=== PATIENT | male | born 1990 | race Caucasian/White ===

== ENCOUNTER 2022-07-19 10:28 | Emergency (ER) | payer BC, SELFPAY ==
[2022-07-19 10:28] VITALS: BP 186/94; PULSE 123; RESP 17; TEMP 36.7; O2SAT 97
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
--- NOTE | 2022-07-19 10:29 | PC.NURSE ---
xray at bedside
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
[2022-07-19 10:31] VITALS: BMI 34.2
--- NOTE | 2022-07-19 10:31 | PC.NURSE ---
RADIOLOGY NOTIFIED OF CT SCAN
[2022-07-19 10:45] LABS: Basophils # 0.1 K/mm3 (0-0.2); Basophils % 0.6 % (0.1-2.0); Eosinophils # 0.2 K/mm3 (0.0-0.4); Eosinophils % 1.3 % (0.1-12.0); Hematocrit 51.2 % (42.0-52.0); Hemoglobin 17.3 g/dL (14.1-18.0); Lymphocytes # 3.8 K/mm3 (0.7-4.5); Lymphocytes % 24.7 % (10-50); Mean Corpuscular HGB Conc 33.8 g/dL (31.8-35.4); Mean Corpuscular Hemoglobin 30.5 pg (27.0-31.2); Mean Corpuscular Volume 90.3 fl (80-94); Mean Platelet Volume 7.5 fl (7.4-10.4); Monocytes % 6.9 % (1.7-9.3); Neutrophils # 10.1 K/mm3 (1.8-7.8); Neutrophils % 66.5 % (37.0-80.0); Platelet Count 296 K/mm3 (142-424); Red Blood Count 5.67 M/mm3 (4.60-6.20); Red Cell Distribution Width 12.6 % (11.5-17.5); White Blood Count 15.2 K/mm3 (4.8-10.8)
[2022-07-19 10:46] LABS: Anion Gap 17.7 mEq/L (5-15); Blood Urea Nitrogen 14 mg/dl (9-20); Calcium 9.8 mg/dl (8.4-10.2); Carbon Dioxide 28 mmol/L (22.0-30.0); Chloride 97 mmol/L (98-107); Creatinine Clearance Estimated 180 mL/min (50-200); Estimated Glomerular Filt Rate 88 ml/min (>60); GFR (African American) 106 ML/MIN (>60); Glucose 97 mg/dl (74-100); Potassium 3.7 mmoL/L (3.5-5.1); Sodium 139 mmol/L (136-145)
[2022-07-19 10:53] LABS: MANUAL DIFFERENTIAL MANUAL DIFFERENTIAL (MANUAL DIFF)
[2022-07-19 11:00] VITALS: BP 157/105; PULSE 93; O2SAT 94
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
[2022-07-19 11:07] VITALS: BP 144/100; PULSE 92; O2SAT 95
--- NOTE | 2022-07-19 11:22 | PC.NURSE ---
gave water to pt, visitors at bedside
--- NOTE | 2022-07-19 11:22 | PC.NURSE ---
Rounded on patient at this time no new needs. MD had advised pt could have some water at this time Racquel brought water in. No other needs
[2022-07-19 11:30] VITALS: BP 150/99; PULSE 84; O2SAT 97
--- NOTE | 2022-07-19 11:38 | PC.NURSE ---
checked on pt nothing needed at this time, visitor at bedside
[2022-07-19 11:48] LABS: Eosinophils % 1 % (0-3); Lymphocytes % 24 % (10-50); Monocytes % 6 % (2-9); Neutrophils % 69 % (42-76); Platelet Estimate Normal; RBC Morphology Normal; Total Cells Counted 100
[2022-07-19 11:54] VITALS: BP 150/99; PULSE 82; RESP 16; TEMP 36.8; O2SAT 98
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
== END 2022-07-19 12:14 | disposition home or self-care (01) ==
PROVIDERS: Emergency Provider Emergency Medicine; PCP Nurse Practitioner Family
DX: S21.109A Unspecified open wound of unspecified front wall of thorax without penetration into thoracic cavity, initial encounter (principal); S31.109A Unspecified open wound of abdominal wall, unspecified quadrant without penetration into peritoneal cavity, initial encounter; S01.80XA Unspecified open wound of other part of head, initial encounter; W34.00XA Accidental discharge from unspecified firearms or gun, initial encounter; F17.200 Nicotine dependence, unspecified, uncomplicated; Z23 Encounter for immunization
CPT/HCPCS: 71045; 71260; 80048; 85007; 85025; 90715; 96360; 96372; 99284; 99285; Q9967

== ENCOUNTER 2023-09-07 11:30 | Outpatient (CLI) | payer BC, SELFPAY ==
[2023-09-07 18:13] LABS: Basophils # 0.1 K/mm3 (0-0.2); Basophils % 1.6 % (0.1-2.0); Eosinophils # 0.2 K/mm3 (0.0-0.4); Eosinophils % 2.2 % (0.1-12.0); Hematocrit 51.6 % (42.0-52.0); Hemoglobin 17.3 g/dL (14.1-18.0); Lymphocytes # 2.2 K/mm3 (0.7-4.5); Lymphocytes % 31.2 % (10-50); Mean Corpuscular HGB Conc 33.5 g/dL (31.8-35.4); Mean Corpuscular Hemoglobin 30.3 pg (27.0-31.2); Mean Corpuscular Volume 90.5 fl (80-94); Mean Platelet Volume 7.9 fl (7.4-10.4); Monocytes # 0.4 K/mm3 (0.1-1.0); Monocytes % 5.5 % (1.7-9.3); Neutrophils # 4.2 K/mm3 (1.8-7.8); Neutrophils % 59.4 % (37.0-80.0); Platelet Count 305 K/mm3 (142-424); Red Cell Distribution Width 13.2 % (11.5-17.5)
[2023-09-07 18:41] LABS: Chloride 105 mmol/L (98-107); Sodium 139 mmol/L (136-145)
[2023-09-07 18:42] LABS: Potassium 4.7 mmoL/L (3.5-5.1)
[2023-09-07 18:44] LABS: Alanine Aminotransferase 74 U/L (12-78); Albumin Level 4.8 g/dl (3.5-5.0); Albumin/Globulin Ratio 1.7 (1.1-1.8); Alkaline Phosphatase 101 U/L (38-126); Anion Gap 11.7 mEq/L (5-15); Aspartate Amino Transferase 42 U/L (17-59); Bilirubin,Total 0.5 mg/dl (0.2-1.3); Blood Urea Nitrogen 16 mg/dl (9-20); Carbon Dioxide 27 mmol/L (22.0-30.0); Cholesterol 210 mg/dl (140-200); Estimated Glomerular Filt Rate 87 ml/min (>60); GFR (African American) 105 ML/MIN (>60); Globulin 2.8 g/dL (1.3-3.2); Total Protein,Serum 7.6 g/dl (6.3-8.2); Triglycerides 240 mg/dl (30-150); VLDL Cholesterol 48 mg/dL (0-40)
[2023-09-07 18:45] LABS: Calcium 10.7 mg/dl (8.4-10.2); Chol/HDL Ratio 5.5 (1-3.5); Glucose 84 mg/dl (74-100); HDL Cholesterol 38 mg/dl (40-60)
[2023-09-07 18:56] LABS: Direct LDL Cholesterol 115.93 mg/dL (100-129)
[2023-09-07 19:01] LABS: 25-OH Vitamin D, Total 34.5 ng/mL (30-100)
[2023-09-07 19:05] LABS: Hemoglobin A1C 6.3 % (4.0-6.0)
[2023-09-07 19:16] LABS: Thyroid Stimulating Hormone 2.48 uIU/mL (0.465-4.68)
[2023-09-07 20:51] LABS: Vitamin B12 870 pg/mL (239-931)
[2023-09-08 10:49] LABS: HIV (1&2) Antibody Rapid NON REACTIVE
[2023-09-09 07:08] LABS: Testosterone,Total 283 ng/dL (264-916)
[2023-09-09 12:20] LABS: HCV Ab Non Reactive (Non Reactive)
== END 2023-09-07 23:59 | disposition home or self-care (01) ==
LOC: LAB.DROPOF 09-08 10:48
PROVIDERS: PCP Family Medicine; Visit Provider Family Medicine
DX: R53.83 Other fatigue (principal)
CPT/HCPCS: 80050; 80053; 80061; 82306; 82607; 83036; 84403; 84443; 85025

== ENCOUNTER 2023-11-02 08:50 | Outpatient (CLI) | payer BC, SELFPAY ==
[2023-11-02 19:09] LABS: Alanine Aminotransferase 47 U/L (12-78); Albumin Level 4.1 g/dl (3.5-5.0); Albumin/Globulin Ratio 1.5 (1.1-1.8); Alkaline Phosphatase 86 U/L (38-126); Anion Gap 9.7 mEq/L (5-15); Aspartate Amino Transferase 34 U/L (17-59); Bilirubin,Indirect 0.5 mg/dL (0.0-0.9); Bilirubin,Total 0.5 mg/dl (0.2-1.3); Bilirubin,Unconjugated 0.6 mg/dL (0.0-1.1); Blood Urea Nitrogen 12 mg/dl (9-20); Calcium 9.7 mg/dl (8.4-10.2); Carbon Dioxide 29 mmol/L (22.0-30.0); Chloride 104 mmol/L (98-107); Chol/HDL Ratio 3.3 (1-3.5); Cholesterol 122 mg/dl (140-200); Estimated Glomerular Filt Rate 112 ml/min (>60); GFR (African American) 136 ML/MIN (>60); Globulin 2.7 g/dL (1.3-3.2); Glucose 94 mg/dl (74-100); HDL Cholesterol 37 mg/dl (40-60); Potassium 4.7 mmoL/L (3.5-5.1); Sodium 138 mmol/L (136-145); Total Protein,Serum 6.8 g/dl (6.3-8.2); Triglycerides 101 mg/dl (30-150); VLDL Cholesterol 20 mg/dL (0-40)
[2023-11-02 19:20] LABS: Direct LDL Cholesterol 63.26 mg/dL (100-129)
== END 2023-11-02 23:59 | disposition home or self-care (01) ==
LOC: LAB.DROPOF 11-05 08:50
PROVIDERS: PCP Family Medicine; Visit Provider Family Medicine
DX: R53.83 Other fatigue (principal)
CPT/HCPCS: 80053; 80061; 80076

== ENCOUNTER 2024-07-10 13:34 | Outpatient (CLI) | payer BC, SELFPAY ==
[2024-07-10 18:52] LABS: Basophils % 0.5 % (0.1-2.0); Eosinophils # 0.2 Kmm3 (0.0-0.4); Eosinophils % 3.3 % (0.1-12.0); Hematocrit 48.5 % (42.0-52.0); Hemoglobin 16.6 g/dL (14.1-18.0); Immature Granulocytes # 0.02 10^3uL; Immature Granulocytes % 0.3 %; Lymphocytes # 2.3 K/mm3 (0.7-4.5); Lymphocytes % 35.7 % (10-50); Mean Corpuscular HGB Conc 34.2 g/dL (31.8-35.4); Mean Corpuscular Hemoglobin 30.1 pg (27.0-31.2); Mean Corpuscular Volume 87.9 fl (80-94); Mean Platelet Volume 9.3 fl (7.4-10.4); Monocytes # 0.4 K/mm3 (0.1-1.0); Monocytes % 6.2 % (1.7-9.3); Neutrophils # 3.5 K/mm3 (1.8-7.8); Nucleated Red Blood Cells # 0 10^3/uL; Nucleated Red Blood Cells % 0 %; Platelet Count 299 K/mm3 (142-424); Red Blood Count 5.52 M/mm3 (4.60-6.20); Red Cell Distribution Width 11.9 % (11.5-17.5); Red Cell Distribution Width-SD 38.5 fL; White Blood Count 6.4 K/mm3 (4.8-10.8)
[2024-07-10 19:20] LABS: Alanine Aminotransferase 55 U/L (12-78); Albumin Level 4.7 g/dl (3.5-5.0); Albumin/Globulin Ratio 2.2 (1.1-1.8); Alkaline Phosphatase 100 U/L (38-126); Anion Gap 8.9 mEq/L (5-15); Aspartate Amino Transferase 32 U/L (17-59); Bilirubin,Total 0.6 mg/dl (0.2-1.3); Blood Urea Nitrogen 17 mg/dl (9-20); Carbon Dioxide 28 mmol/L (22.0-30.0); Chloride 105 mmol/L (98-107); Chol/HDL Ratio 4.4 (1-3.5); Cholesterol 168 mg/dl (140-200); Estimated Glomerular Filt Rate 98 ml/min (>60); GFR (African American) 118 ML/MIN (>60); Globulin 2.1 g/dL (1.3-3.2); Glucose 98 mg/dl (74-100); HDL Cholesterol 38 mg/dl (40-60); Potassium 4.9 mmoL/L (3.5-5.1); Sodium 137 mmol/L (136-145); Total Protein,Serum 6.8 g/dl (6.3-8.2); Triglycerides 157 mg/dl (30-150); VLDL Cholesterol 31 mg/dL (0-40)
[2024-07-10 19:35] LABS: Direct LDL Cholesterol 100.26 mg/dL (100-129)
[2024-07-10 19:48] LABS: Thyroid Stimulating Hormone 1.62 uIU/mL (0.465-4.68)
[2024-07-10 22:32] LABS: Hemoglobin A1C 5.1 % (4.0-6.0)
== END 2024-07-10 23:59 | disposition home or self-care (01) ==
LOC: LAB.DROPOF 07-11 13:14
PROVIDERS: PCP Family Medicine; Visit Provider Family Medicine
DX: E78.5 Hyperlipidemia, unspecified (principal); R73.03 Prediabetes; R53.83 Other fatigue; Z00.00 Encounter for general adult medical examination without abnormal findings
CPT/HCPCS: 80053; 80061; 82306; 83036; 84403; 84443; 85025

== ENCOUNTER 2024-08-04 23:57 | Emergency (ER) | payer BC, SELFPAY ==
--- NOTE | 2024-08-05 00:06 | ECG_ITS ---
APPROVED REPORT Exam: Resting ECG HR:80 bpm ECG Measurements Heart Rate 80 AXES SD 149 P 64 QRSd 99 QRS 59 QT 352 T 49 QTc 388 Conclusion SINUS RHYTHM NORMAL ECG Electronically signed by : HERBER LYONS, 08/05/2024 06:31:39
[2024-08-05 00:08] VITALS: BP 157/106; PULSE 61; RESP 12; TEMP 36.9; O2SAT 100; BMI 34.2
--- NOTE | 2024-08-05 00:24 | XR_ITS ---
PROCEDURE INFORMATION: Exam: XR Chest Exam date and time: 08/05/2024 12:30 AM Age: 34 years old Clinical indication: Pain; Angina pectoris; Additional info: Low chest pain/burning TECHNIQUE: Imaging protocol: Radiologic exam of the chest. Views: 2 views. COMPARISON: CT CHEST W CON 07/19/2022 10:33 AM FINDINGS: Lungs: Unremarkable. No consolidation. Pleural spaces: Unremarkable. No pleural effusion. No pneumothorax. Heart/Mediastinum: Unremarkable. No cardiomegaly. Bones/joints: Unremarkable. IMPRESSION: No acute findings.
[2024-08-05 00:31] LABS: Basophils # 0.1 K/mm3 (0-0.2); Basophils % 0.6 % (0.1-2.0); Eosinophils # 0.2 Kmm3 (0.0-0.4); Eosinophils % 2.1 % (0.1-12.0); Hematocrit 45.7 % (42.0-52.0); Immature Granulocytes # 0.03 10^3uL; Immature Granulocytes % 0.3 %; Lymphocytes # 2.7 K/mm3 (0.7-4.5); Lymphocytes % 30.1 % (10-50); Mean Corpuscular Hemoglobin 30.1 pg (27.0-31.2); Mean Corpuscular Volume 86.1 fl (80-94); Mean Platelet Volume 8.9 fl (7.4-10.4); Monocytes # 0.5 K/mm3 (0.1-1.0); Monocytes % 5.5 % (1.7-9.3); Neutrophils # 5.6 K/mm3 (1.8-7.8); Neutrophils % 61.4 % (37.0-80.0); Nucleated Red Blood Cells # 0 10^3/uL; Nucleated Red Blood Cells % 0 %; Platelet Count 311 K/mm3 (142-424); Red Blood Count 5.31 M/mm3 (4.60-6.20); Red Cell Distribution Width 11.9 % (11.5-17.5); Red Cell Distribution Width-SD 37.1 fL; White Blood Count 9.1 K/mm3 (4.8-10.8)
[2024-08-05 00:34] LABS: Alanine Aminotransferase 60 U/L (12-78); Albumin Level 4.7 g/dl (3.5-5.0); Albumin/Globulin Ratio 1.7 (1.1-1.8); Alkaline Phosphatase 97 U/L (38-126); Aspartate Amino Transferase 36 U/L (17-59); Bilirubin,Total 0.4 mg/dl (0.2-1.3); Blood Urea Nitrogen 16 mg/dl (9-20); Carbon Dioxide 29 mmol/L (22.0-30.0); Creatinine Clearance Estimated 175 mL/min (50-200); Estimated Glomerular Filt Rate 86 ml/min (>60); GFR (African American) 104 ML/MIN (>60); Globulin 2.7 g/dL (1.3-3.2); Glucose 115 mg/dl (74-100); Potassium 3.9 mmoL/L (3.5-5.1); Sodium 140 mmol/L (136-145); Total Protein,Serum 7.4 g/dl (6.3-8.2)
[2024-08-05] MEDS: BELLADONNA ALKALOIDS 60 ML ML PO (00:36)
[2024-08-05] MEDS: ASPIRIN 81MG CHEWABLE TABLET 324 MG PO (00:36)
[2024-08-05 00:38] LABS: INR 1.02 (0.9-1.1); Prothrombin Time 11.3 seconds (10.1-12.5)
[2024-08-05 00:47] LABS: Anion Gap 10.9 mEq/L (5-15); Chloride 104 mmol/L (98-107); Troponin I < 0.01 ng/ml (0.00-0.034)
[2024-08-05 01:09] LABS: Lipase 39 U/L (23-300)
[2024-08-05] MEDS: KETOROLAC 30MG/ML VIAL 15 MG IV (01:11)
[2024-08-05] MEDS: ONDANSETRON 4MG/2ML VIAL 4 MG IV (01:12)
--- NOTE | 2024-08-05 01:22 | PC.NURSE ---
After patient reassessment, pt found to be vomiting into emesis bag upon entry to room. Patient medicated at that time. SEE MAR. Patient states that epigastric pain has subsided after emesis episode, and refuses nitro at this time due to decreased pain.
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
[2024-08-05 03:51] LABS: Troponin I < 0.01 ng/ml (0.00-0.034)
[2024-08-05 04:04] VITALS: BP 128/73; PULSE 66; RESP 16; TEMP 36.7; O2SAT 99
== END 2024-08-05 04:07 | disposition home or self-care (01) ==
PROVIDERS: Emergency Provider Emergency Medicine
DX: R07.9 Chest pain, unspecified (principal); R10.13 Epigastric pain; F17.290 Nicotine dependence, other tobacco product, uncomplicated
CPT/HCPCS: 71046; 80053; 83690; 84484; 85025; 85610; 93005; 96374; 96375; 99284; J1885; J2405

== ENCOUNTER 2025-01-25 03:31 | Emergency (ER) | payer BC, SELFPAY ==
--- OUTSIDE RECORDS SUMMARY | 2025-01-23 14:01 | XMS_ITS | Encounter Summary ---
Author Organization [employer] ([place], [place], [place], [place], [place]) Address [address] [place] [address] Care Team Providers Care Noc Analyst Name Role Phone [facility], Provider Not In The System Primary Care Provider Unavailable Reason for Visit * Reason Comments Abdominal Pain Encounter Details Date Type Department Care Team (Late st Contact Info) Description 01/23/2025 2:01 PM EST - 01/23/2025 5:38 PM EST Emergency [facility] Emergency Department [address] [place] [id number] Abdominal pain (Primary Dx); Gallstone Discharge Disposition: Home or Self Care Social History Tobacco Use Types Packs/Day Years Used Date Smoking Tobacco: Never Assessed Sex and Gender Information Value Date Recorded Sex Assigned at Not on file Legal Sex Male 8:24 PM CDT Gender Identity Not on file Sexual Orientation Not on file documented as of this encounter Last Filed Vital Signs Vital Sign Reading Time Taken Comments Blood Pressure 162/99 01/23/2025 5:37 PM EST Pulse 80 01/23/2025 5:37 PM EST Temperature 36.6 C (97.9 F) 01/23/2025 2:00 PM EST Respiratory Rate 18 01/23/2025 5:37 PM EST Oxygen Saturation 99% 01/23/2025 5:37 PM EST Inhaled Oxygen Concentration - - Weight 106.6 kg (235 lb) 01/23/2025 2:00 PM EST Height 185.4 cm (6' 1 ) 01/23/2025 2:00 PM EST Body Mass Index 31 01/23/2025 2:00 PM EST documented in this encounter Discharge Instructions * Discharge Instructions* Emilia Archuleta PA-C - 01/23/2025 4:47 PM EST Recommend bland diet. Follow up with Primary Care and Surgery next week for evaluation of gallstones. Return to ER if symptoms worse or different. IGURATION ENGINEER IGURATION ENGINEER * Attachments The following attachments cannot be sent through Care Everywhere. * Cholelithiasis [place] (Tanzanian) * Abdominal Pain Adult (Tanzanian) * [place] Diet (Tanzanian) documented in this encounter Medications at Time of Discharge famotidine (PEPCID) 40 MG tablet Take 1 tablet (40 mg total) by mouth daily. 30 tablet 01/23/2025 ondansetron (ZOFRAN-ODT) 4 MG disintegrating tablet Take 1 tablet (4 mg total) by mouth every 4 (four) hours as needed for nausea or vomiting for up to 7 days. 20 tablet 01/23/2025 5 documented as of this encounter ED Notes * Stella Chirinos RN - 01/23/2025 5:37 PM EST Pt. Verbalized discharge instructions and understanding. Pt. At baseline and ambulatory at time of discharge. Stella Chirinos RN 01/23/25 [id number] IGURATION ENGINEER * Sukh Hobbs RN - 01/23/2025 1:59 PM EST Burning belly pain. IGURATION ENGINEER documented in this encounter Plan of Treatment Not on file documented as of this encounter Procedures Procedure Name Priority Date/Time Associated Diagnosis Comments CT ABDOMEN/PELVIS WITH IV CONTRAST STAT 01/23/2025 3:26 PM EST URINALYSIS, REFLEX MICROSCOPIC AND CULTURE IF INDICATED STAT 01/23/2025 2:55 PM EST [place] PST (EXTRA TUBES) STAT 01/23/2025 2:07 PM EST [place] LUTHER TOP STAT 01/23/2025 2:07 PM EST [place] BLUE TOP (EXTRA TUBES) STAT 01/23/2025 2:07 PM EST [place] EXTRA TUBES STAT 01/23/2025 2:07 PM EST CBC W/ AUTO DIFF STAT 01/23/2025 2:07 PM EST LIPASE STAT 01/23/2025 2:07 PM EST COMPREHENSIVE METABOLIC PANEL STAT 01/23/2025 2:07 PM EST documented in this encounter Results * CT ABDOMEN/PELVIS WITH IV CONTRAST (01/23/2025 3:26 PM EST) Anatomical Region Laterality Modality Abdomen, Pelvis Computed Tomogra phy (CT) 01/23/2025 4:02 PM EST Impressions 01/23/2025 4:14 PM EST No acute intra-abdominal process. Cholelithiasis. Images reviewed, interpreted, and dictated by Dr. Angelique Khan. Transcribed by Micki Goldberg PA-C. Narrative 01/23/2025 4:[address] SCAN OF THE ABDOMEN AND PELVIS WITH CONTRAST 01/23/2025 3:06 PM HISTORY: Epigastric pain. COMPARISON: None. PROCEDURE: The patient was injected with IV contrast. Axial images were obtained from the lung bases to the pubic symphysis by computed tomography. This study was performed with techniques to keep radiation doses as low as reasonably achievable, (ALARA). Individualized dose reduction techniques using automated exposure control or adjustment of mA and/or kV according to the patient size were employed. FINDINGS: ABDOMEN: The lung bases are clear. The heart is proper size. The liver is homogenous with no focal abnormality. There are gallstones within the gallbladder. The spleen is unremarkable. No adrenal mass is present. The pancreas is unremarkable. The kidneys are unremarkable, without evidence of mass or hydronephrosis. The aorta is normal in caliber. There is no free fluid or adenopathy. PELVIS: The GI tract demonstrates no obstruction. The appendix is not identified. The urinary bladder is unremarkable. There is no free fluid, adenopathy, or inflammatory process. Procedure Note Fan Khan MD - 01/23/2025 CT SCAN OF THE ABDOMEN AND PELVIS WITH CONTRAST 01/23/2025 3:06 PM HISTORY: Epigastric pain. COMPARISON: None. PROCEDURE: The patient was injected with IV contrast. Axial images were obtained from the lung bases to the pubic symphysis by computed tomography. This study was performed with techniques to keep radiation doses as low as reasonably achievable, (ALARA). Individualized dose reduction techniques using automated exposure control or adjustment of mA and/or kV according to the patient size were employed. FINDINGS: ABDOMEN: The lung bases are clear. The heart is proper size. The liver is homogenous with no focal abnormality. There are gallstones within the gallbladder. The spleen is unremarkable. No adrenal mass is present. The pancreas is unremarkable. The kidneys are unremarkable, without evidence of mass or hydronephrosis. The aorta is normal in caliber. There is no free fluid or adenopathy. PELVIS: The GI tract demonstrates no obstruction. The appendix is not identified. The urinary bladder is unremarkable. There is no free fluid, adenopathy, or inflammatory process. IMPRESSION: No acute intra-abdominal process. Cholelithiasis. Images reviewed, interpreted, and dictated by Dr. Angelique Khan. Transcribed by Micki Goldberg PA-C. Emilia Archuleta PA-C IM CT ORDERABLES Final Res ult * Urinalysis, Reflex Microscopic and Culture If Indicated (01/23/2025 2:55 PM EST) Color, UA Colorless 01/23/2025 3:00 PM EST [facility] Clarity, UA Clear Clear 01/23/2025 3:00 PM EST [facility] Specific [place], UA 1.010 1.005 - 1.030 01/23/2025 3:00 PM EST [facility] pH, UA 7.5 6.0 - 8.0 01/23/2025 3:00 PM [facility] Leukocytes, UA Negative Negative 01/23/2025 3:00 PM [facility] Nitrite, UA Negative Negative 01/23/2025 3:00 PM [facility] Protein, UA Negative Negative 01/23/2025 3:00 PM [facility] Glucose, UA Normal Normal 01/23/2025 3:00 PM [facility] Ketones, UA Negative Negative 01/23/2025 3:00 PM [facility] Bilirubin, UA Negative Negative 01/23/2025 3:00 PM [facility] Blood, UA Negative Negative 01/23/2025 3:00 PM [facility] Urobilinogen, UA Normal Normal 01/23/2025 3:00 PM [facility] Specimen Source Urine, Clean Catch 01/23/2025 3:00 PM [facility] Urine URINE SPECIMEN COLLECTION, CLEAN CATCH / Unknown 01/23/2025 2:55 PM EST 01/23/2025 2:55 PM EST Kj Hernandez MD URINE ORDERABLES Final Resu lt Performing Organization Address City/[facility]/ZIP Co de Phone Number [facility] [address] [phone] * Luther Top Extra Tubes (01/23/2025 2:07 PM EST) HOLD SPECIMEN (SJ - BKR) Hold for add-ons. 01/23/2025 4:00 PM EST [facility] Comment:Auto resulted. Blood (Blood, Veinous) Venipuncture / Unknown 01/23/2025 2:07 PM EST 01/23/2025 2:16 PM EST Kj Hernandez MD LAB BLOOD ORDERABLES Final Result Performing Organization Address City/[facility]/ZIP Co de Phone Number [facility] [address] [phone] * PST Top Extra Tubes (01/23/2025 2:07 PM EST) HOLD SPECIMEN ( - BKR) Hold for add-ons. 01/23/2025 4:00 PM EST [facility] Comment:Auto resulted. Blood (Blood, Veinous) Venipuncture / Unknown 01/23/2025 2:07 PM EST 01/23/2025 2:16 PM EST Kj Hernandez MD LAB BLOOD ORDERABLES Final Result Performing Organization Address City/[facility]/ZIP Co de Phone Number [facility] [address] [phone] * Blue Top Extra Tubes (01/23/2025 2:07 PM EST) HOLD SPECIMEN ( - BKR) Hold for add-ons. 01/23/2025 4:00 PM EST [facility] Comment:Auto resulted. Blood (Blood, Veinous) Venipuncture / Unknown 01/23/2025 2:07 PM EST 01/23/2025 2:16 PM EST Kj Hernandez MD LAB BLOOD ORDERABLES Final Result Performing Organization Address [facility] Co de Phone Number [facility] [address] [phone] * Lipase (01/23/2025 2:07 PM EST) Lipase 14 <=60 U/L 01/23/2025 2:40 PM EST [facility] Blood Venipuncture / Unknown 01/23/2025 2:07 PM EST 01/23/2025 2:16 PM EST Kj Hernandez MD LAB BLOOD ORDERABLES Final Result Performing Organization Address [facility] Co de Phone Number [facility] [address] [phone] * (ABNORMAL) Comprehensive metabolic panel (01/23/2025 2:07 PM EST) Sodium 140 136 - 145 meq/L 01/23/2025 2:40 PM [facility] Potassium 4.6 3.4 - 5.1 meq/L 01/23/2025 2:40 PM [facility] Chloride 107 98 - 112 meq/L 01/23/2025 2:40 PM [facility] CO2 25 22 - 29 meq/L 01/23/2025 2:40 PM [facility] Calcium 10.2 8.4 - 10.2 mg/dL 01/23/2025 2:40 PM [facility] Glucose 104(H) 74 - 100 mg/dL 01/23/2025 2:40 PM [facility] BUN 18.0 8.9 - 20.6 mg/dL 01/23/2025 2:40 PM [facility] Creatinine 0.94 0.60 - 1.20 mg/dL 01/23/2025 2:40 PM [facility] BUN/Creatinine 19 8 - 20 01/23/2025 2:40 PM [facility] eGFR (mL/min/1.73m2) 110 >=60 mL/min/1.7 3m2 01/23/2025 2:40 PM [facility] Comment:ESTIMATED GFR IS NOT ACCURATE CREATININE CLEARANCE IN PREDICTING GLOMERULAR FILTRATION RATE. ESTIMATED GFR IS NOT APPLICABLE FOR DIALYSIS PATIENTS. Albumin 4.5 3.5 - 5.0 g/dL 01/23/2025 2:40 PM [facility] Alkaline Phosphatase 96 40 - 150 U/L 01/23/2025 2:40 PM [facility] ALT 50 <55 U/L 01/23/2025 2:40 PM [facility] AST 28 5 - 34 U/L 01/23/2025 2:40 PM [facility] Total Bilirubin 0.4 0.3 - 1.2 mg/dL 01/23/2025 2:40 PM [facility] Protein, Total 7.4 6.4 - 8.3 g/dL 01/23/2025 2:40 PM [facility] Globulin 2.9 2.5 - 4.1 g/dL 01/23/2025 2:40 PM [facility] Anion Gap 13(H) 4 - 12 01/23/2025 2:40 PM [facility] A/G Ratio 1.6 0.7 - 1.9 01/23/2025 2:40 PM [facility] Osmolality Calc 281.6 mOsm/kg 2:40 PM [facility] Blood Venipuncture / Unknown 01/23/2025 2:07 PM EST 01/23/2025 2:16 PM EST us Kj Hernandez MD LAB BLOOD ORDERABLES Final Result [facility] [address] [phone] * (ABNORMAL) CBC with Auto Diff (01/23/2025 2:07 PM EST) WBC 8.8 4.2 - 9.1 K/ L 01/23/2025 2:20 PM [facility] RBC 5.49 4.63 - 6.08 M/ L 01/23/2025 2:20 PM [facility] Hemoglobin 16.5 13.7 - 17.5 GM/DL 01/23/2025 2:20 PM [facility] Hematocrit 47.6 40.1 - 51.0 % 01/23/2025 2:20 PM [facility] MCV 87 79 - 92 fL 01/23/2025 2:20 PM [facility] MCH 30.1 25.7 - 32.2 pg 01/23/2025 2:20 PM [facility] MCHC 34.7 32.3 - 36.5 GM/DL 01/23/2025 2:20 PM [facility] RDW 11.9 11.6 - 14.4 % 01/23/2025 2:20 PM [facility] Platelets 296 140 - 375 K/CU MM 01/23/2025 2:20 PM [facility] MPV 8.8(L) 9.4 - 12.4 fL 01/23/2025 2:20 PM [facility] % Neutros 64 34 - 68 % 01/23/2025 2:20 PM [facility] % Lymphs 29 22 - 53 % 01/23/2025 2:20 PM [facility] % Monos 5 5 - 12 % 01/23/2025 2:20 PM [facility] % Eos 1.3 1.0 - 7.0 % 01/23/2025 2:20 PM [facility] % Baso 1 0 - 1 % 01/23/2025 2:20 PM [facility] NRBC Absolute <0.01 0 - 0.012 K/ul 01/23/2025 2:20 PM [facility] # Neutros 5.59(H) 1.78 - 5.38 K/ L 01/23/2025 2:20 PM [facility] # Lymphs 2.54 1.32 - 3.57 K/ L 01/23/2025 2:20 PM [facility] # Monos 0.47 0.30 - 0.82 K/ L 01/23/2025 2:20 PM [facility] # Eos 0.11 0.04 - 0.54 K/ L 01/23/2025 2:20 PM [facility] # Baso 0.06 0.01 - 0.08 K/ L 01/23/2025 2:20 PM [facility] % Imm Grans 0.30 0.01 - 0.43 % 01/23/2025 2:20 PM [facility] # IG 0.03 0.00 - 0.03 K/uL 01/23/2025 2:20 PM [facility] Blood Venipuncture / Unknown 01/23/2025 2:07 PM EST 01/23/2025 2:16 PM [facility] - 01/23/2025 2:20 PM EST When CBC w/ Auto Diff is ordered the lab will add a Manual Differential as a quality check at no additional charge if: Lymphocytes greater than seventy five percent with normal or increased WBC Monocytes greater than Fifteen percent Basophil greater than four percent Bands >10% or several immature myeloids are seen on scan Blast? Flag noted Atypical Lymph flag noted us Kj Hernandez MD LAB BLOOD ORDERABLES Final Result [facility] [address] [place] [address], [facility] [phone] documented in this encounter Visit Diagnoses Diagnosis Abdominal pain- Primary Abdominal pain, unspecified site Gallstone Calculus of gallbladder without mention of cholecystitis or obstruction documented in this encounter Administered Medications Inactive Administered Medications - up to 3 most recent administrations Medication Order MAR Action Action Date Dose Rate Site iopamidoL (ISOVUE-370) 370 mg iodine /mL (76 %) injection 75 mL 75 mL IMG once as needed, intravenous, contrast, Starting on Sun01/23/25 at 1515, For 1 dose, Intra-op Given 01/23/2025 3:27 PM EST 75 mLs documented in this encounter Active and Recently Administered Medications Times are shown in EST. Scheduled Medication Order 01/21/2025 01/22/2025 01/23/2025 alum-mag hydroxide-simeth (MAALOX/MYLANTA) 200-200-20 mg/5 mL suspension 30 mL 30 mL Once, oral, On Sun01/23/25 at 1620, For 1 dose, Do NOT exceed 6 doses per order. 1630 (Not Given - Pr ovider: Stella Chirinos RN - Reason: Patient/family refused) famotidine (PEPCID) tablet 40 mg 40 mg Once, oral, On Sun01/23/25 at 1620, For 1 dose, Pharmacist to renally dose if CrCl is less than 50 mL/min or on CRRT. 1631 (Not Given - Pr ovider: Stella Chirinos RN - Reason: Patient/family refused) PRN Medication Order 01/21/2025 01/22/2025 01/23/2025 iopamidoL (ISOVUE-370) 370 mg iodine /mL (76 %) injection 75 mL (COMPLETED) 75 mL IMG once as needed, intravenous, contrast, Starting on Sun01/23/25 at 1515, For 1 dose, Intra-op 1527 (Given - Provid er: Carmen Desai) documented in this encounter Care Teams Noc Analyst Relationship Specialty Start Date End Date [facility], Provider Not In The System, [place] [address] PCP - General 01/23/25 documented as of this encounter
--- OUTSIDE RECORDS SUMMARY | 2025-01-25 03:37 | XMS_ITS | Clinical Summary ---
Author Organization [facility] ([place], [place], [place], [place], [place]) Address [address] [place] [address] Care Team Providers Care Dough Raiser Name Role Phone [facility], Provider Not In The System Primary Care Provider Unavailable Allergies No known active allergies Medications famotidine (PEPCID) 40 MG tablet Take 1 tablet (40 mg total) by mouth daily. 30 tablet Active ondansetron (ZOFRAN-ODT) 4 MG disintegrating tablet Take 1 tablet (4 mg total) by mouth every 4 (four) hours as needed for nausea or vomiting for up to 7 days. 20 tablet 5 01/31/20 25 Active Encounters Date Type Department Care Team Description 01/23/2025 2:01 PM EST - 01/23/2025 5:38 PM EST Emergency [facility] Emergency Department [address] [place] [address] Abdominal pain (Primary Dx); Gallstone Discharge Disposition: Home or Self Care 01/23/2025 Travel from Last 3 Months Social History Tobacco Use Types Packs/Day Years Used Date Smoking Tobacco: Never Assessed Sex and Gender Information Value Date Recorded Sex Assigned at Not on file Legal Sex Male 8:24 PM CDT Gender Identity Not on file Sexual Orientation Not on file Last Filed Vital Signs Vital Sign Reading [...] Mass Index 31 01/23/2025 2:00 PM EST Plan of Treatment Health Maintenance Due Date Last Done Comments Depression Screening (12+) 2003 Tobacco Cessation Counseling and Screening (12+) 2003 COVID-19 VACCINE ( - 2023-2 5 season) 2024 Influenza Vaccine (#1) 2024 DTAP/TDAP/TD VACCINES (3 - T d or Tdap) 07/19/2032 07/19/2022, 06/12/1996 Pneumococcal Vaccine: 0-49 Years Aged Out No longer eligible b ased on patient's age to complete this topic Procedures Procedure Name Priority Date/Time Associated Diagnosis Comments CT ABDOMEN/PELVIS WITH IV CONTRAST STAT 01/23/2025 3:26 PM EST URINALYSIS, REFLEX MICROSCOPIC AND CULTURE IF INDICATED STAT 01/23/2025 2:55 PM EST [place] LUTHER TOP STAT 01/23/2025 2:07 PM EST [place] PST (EXTRA TUBES) STAT 01/23/2025 2:07 PM EST [place] BLUE TOP (EXTRA TUBES) STAT 01/23/2025 2:07 PM EST [place] EXTRA TUBES STAT 01/23/2025 2:07 PM EST LIPASE STAT 01/23/2025 2:07 PM EST COMPREHENSIVE METABOLIC PANEL STAT 01/23/2025 2:07 PM EST CBC W/ AUTO DIFF STAT 01/23/2025 2:07 PM EST from Last 3 Months Results * CT ABDOMEN/PELVIS WITH IV CONTRAST [...] by Micki Goldberg PA-C. Emilia Archuleta PA-C IMG CT ORDERABLES Final Res ult * Urinalysis, Reflex Microscopic and Culture If Indicated (01/23/2025 2:55 PM EST) Color, UA Colorless 01/23/2025 3:00 PM [facility] Clarity, UA Clear Clear 01/23/2025 3:00 PM [facility] Specific [place], UA 1.010 1.005 - 1.030 01/23/2025 3:00 PM [facility] pH, UA 7.5 6.0 - 8.0 01/23/2025 3:00 PM [facility] Leukocytes, UA Negative Negative 01/23/2025 3:00 PM [facility] Nitrite, UA Negative Negative 01/23/2025 3:00 PM [facility] Protein, UA Negative Negative 01/23/2025 3:00 PM [facility] Glucose, UA Normal Normal 01/23/2025 3:00 PM [facility] Ketones, UA Negative Negative 01/23/2025 3:00 PM [facility] Bilirubin, UA Negative Negative 01/23/2025 3:00 PM [facility] Blood, UA Negative Negative 01/23/2025 3:00 PM [facility] Urobilinogen, UA Normal Normal 01/23/2025 3:00 PM [facility] Specimen Source Urine, Clean Catch 01/23/2025 3:00 PM [facility] Urine URINE SPECIMEN COLLECTION, CLEAN CATCH / Unknown 01/23/2025 2:55 PM EST 01/23/2025 2:55 PM EST Kj Hernandez MD URINE ORDERABLES Final Resu lt Performing Organization Address [facility]/ZIP Co de Phone Number [facility] [address] [place] [address], [facility] [phone] * PST Top Extra Tubes (01/23/2025 2:07 PM EST) HOLD SPECIMEN (SJ - BKR) Hold for add-ons. 01/23/2025 4:[address] [facility] Comment:Auto resulted. Blood (Blood, Veinous) Venipuncture / Unknown 01/23/2025 2:07 PM EST 01/23/2025 2:16 PM EST Kj Hernandez MD LAB BLOOD ORDERABLES Final Result Performing Organization Address [facility] Co de Phone Number [facility] [address] [phone] * Luther Top Extra Tubes (01/23/2025 2:07 PM EST) HOLD SPECIMEN (SJ - BKR) Hold for add-ons. 01/23/2025 4:[address] [facility] Comment:Auto resulted. Blood (Blood, Veinous) Venipuncture / Unknown 01/23/2025 2:07 PM EST 01/23/2025 2:16 PM EST Kj Hernandez MD LAB BLOOD ORDERABLES Final Result Performing Organization Address [facility] Co de Phone Number [facility] [address] [place] [address], [facility] [phone] * Blue Top Extra Tubes (01/23/2025 2:07 PM EST) HOLD SPECIMEN (SJ - BKR) Hold for add-ons. 01/23/2025 4:[address] [facility] Comment:Auto resulted. Blood (Blood, Veinous) Venipuncture / Unknown 01/23/2025 2:07 PM EST 01/23/2025 2:16 PM EST us Kj Hernandez MD LAB BLOOD ORDERABLES Final Result [facility] [address] [phone] * (ABNORMAL) CBC with Auto Diff (01/23/2025 2:07 PM EST) WBC 8.8 4.2 - 9.1 K/ L 01/23/2025 2:20 PM [facility] RBC 5.49 4.63 - 6.08 M/ L 01/23/2025 2:20 PM [facility] Hemoglobin 16.5 13.7 - 17.5 GM/DL 01/23/2025 2:20 PM [facility] Hematocrit 47.6 40.1 - 51.0 % 01/23/2025 2:20 PM [facility] MCV 87 79 - 92 fL 01/23/2025 2:20 PM [facility] MCH 30.1 25.7 - 32.2 pg 01/23/2025 2:20 PM [facility] MCHC 34.7 32.3 - 36.5 GM/DL 01/23/2025 2:20 PM [facility] RDW 11.9 11.6 - 14.4 % 01/23/2025 2:20 PM [facility] Platelets 296 140 - 375 K/CU MM 01/23/2025 2:20 PM [facility] MPV 8.8(L) 9.4 - 12.4 fL 01/23/2025 2:20 PM [facility] % Neutros 64 34 - 68 % 01/23/2025 2:20 PM [facility] % Lymphs 29 22 - 53 % 01/23/2025 2:20 PM [facility] % Monos 5 5 - 12 % 01/23/2025 2:20 PM [facility] % Eos 1.3 1.0 - 7.0 % 01/23/2025 2:20 PM [facility] % Baso 1 0 - 1 % 01/23/2025 2:20 PM [facility] NRBC Absolute <0.01 0 - 0.012 K/ul 01/23/2025 2:20 PM [facility] # Neutros 5.59(H) 1.78 - 5.38 K/ L 01/23/2025 2:20 PM [facility] # Lymphs 2.54 1.32 - 3.57 K/ L 01/23/2025 2:20 PM [facility] # Monos 0.47 0.30 - 0.82 K/ L 01/23/2025 2:20 PM [facility] # Eos 0.11 0.04 - 0.54 K/ L 01/23/2025 2:20 PM [facility] # Baso 0.06 0.01 - 0.08 K/ L 01/23/2025 2:20 PM [facility] % Imm Grans 0.30 0.01 - 0.43 % 01/23/2025 2:20 PM [facility] # IG 0.03 0.00 - 0.03 K/uL 01/23/2025 2:20 PM [facility] Blood Venipuncture / Unknown 01/23/2025 2:07 PM EST 01/23/2025 2:[address] [facility] - 01/23/2025 2:20 PM EST When [...] Hernandez MD LAB BLOOD ORDERABLES Final Result [facility] [address] [phone] * Lipase (01/23/2025 2:07 PM EST) Lipase 14 <=60 U/L 01/23/2025 2:40 PM [facility] Blood Venipuncture / Unknown 01/23/2025 2:07 PM EST 01/23/2025 2:16 PM EST us Kj Hernandez MD LAB BLOOD ORDERABLES Final Result [facility] [address] [phone] * (ABNORMAL) Comprehensive metabolic panel (01/23/2025 2:07 PM EST) Sodium 140 136 - 145 meq/L 01/23/2025 2:40 PM [facility] Potassium 4.6 3.4 - 5.1 meq/L 01/23/2025 2:40 PM [facility] Chloride 107 98 - 112 meq/L 01/23/2025 2:40 PM [facility] CO2 25 22 - 29 meq/L 01/23/2025 2:40 PM [facility] Calcium 10.2 8.4 - 10.2 mg/dL 01/23/2025 2:40 PM [facility] Glucose 104(H) 74 - 100 mg/dL 01/23/2025 2:40 PM [facility] BUN 18.0 8.9 - 20.6 mg/dL 01/23/2025 2:40 PM [facility] Creatinine 0.94 0.60 - 1.20 mg/dL 01/23/2025 2:40 PM [facility] BUN/Creatinine 19 8 - 20 01/23/2025 2:40 PM [facility] eGFR (mL/min/1.73m2) 110 >=60 mL/min/1.7 3m2 01/23/2025 2:40 PM [facility] Comment:ESTIMATED GFR IS NOT ACCURATE CREATININE CLEARANCE IN PREDICTING GLOMERULAR FILTRATION RATE. ESTIMATED GFR IS NOT APPLICABLE FOR DIALYSIS PATIENTS. Albumin 4.5 3.5 - 5.0 g/dL 01/23/2025 2:40 PM [facility] Alkaline Phosphatase 96 40 - 150 U/L 01/23/2025 2:40 PM [facility] ALT 50 <55 U/L 01/23/2025 2:40 PM [facility] AST 28 5 - 34 U/L 01/23/2025 2:40 PM [facility] Total Bilirubin 0.4 0.3 - 1.2 mg/dL 01/23/2025 2:[address] [facility] Protein, Total 7.4 6.4 - 8.3 g/dL 01/23/2025 2:40 PM [facility] Globulin 2.9 2.5 - 4.1 g/dL 01/23/2025 2:40 PM [facility] Anion Gap 13(H) 4 - 12 01/23/2025 2:40 PM [facility] A/G Ratio 1.6 0.7 - 1.9 01/23/2025 2:40 PM [facility] Osmolality Calc 281.6 mOsm/kg 2:40 PM [facility] Blood Venipuncture / Unknown 01/23/2025 2:07 PM EST 01/23/2025 2:16 PM EST us Kj Hernandez MD LAB BLOOD ORDERABLES Final Result Performing Organization Address [facility]/State/[facility] Co de Phone Number [facility] [address] [phone] from Last 3 Months Insurance BLUE CROSS/BLUE SHIELD Care Teams Dough Raiser Relationship Specialty Start Date End Date [facility], Provider Not In The System, [place] [address] PCP - General 01/23/25
--- OUTSIDE RECORDS SUMMARY | 2025-01-25 03:37 | XMS_ITS | Encounter Summary ---
Author Organization [email or web address] ([place], [place], [place], [place], [place]) Address [address] [place] [address] Care Team Providers Care Real Estate Branch Manager Name Role Phone [facility], Provider Not In The System Primary Care Provider Unavailable Encounter Details Date Type Department Care Team (Latest Contact Info) Description 01/23/2025 Travel Social History Tobacco Use Types Packs/Day Years Used Date Smoking Tobacco: Never Assessed Sex and Gender Information Value Date Recorded Sex Assigned at Not on file Legal Sex Male 8:24 PM CDT Gender Identity Not on file Sexual Orientation Not on file documented as of this encounter Plan of Treatment Not on file documented as of this encounter Visit Diagnoses Not on filedocumented in this encounter Care Teams Real Estate Branch Manager Relationship Specialty Start Date End Date Inderjit Provider Not In The System, [place] [address] PCP - General 01/23/25 documented as of this encounter
--- OUTSIDE RECORDS SUMMARY | 2025-01-25 03:37 | XMS_ITS | Clinical Summary ---
Author Organization [facility] Address [address] [place] [id number] Phone [email or web address] Care Team Providers Care Appeals Representative Name Role Phone Provider, No Primary Care Provider Unavailabl e Allergies Active Allergy Reactions Criticality Noted Date Comments Onion Anaphylaxis High 11/20/2017 Medications atorvastatin (LIPITOR) 10 MG tablet Take 10 mg by mouth 1 (one) time each day. Active Active Problems No known active problems Social History Tobacco Use Types Packs/Day Years Used Date Smoking Tobacco: Former Cigarettes 2 5 S tarted: 2020 Smokeless Tobacco: Never Intimate Partner Violence Answer Date R ecorded Insults You Not on file 06/16/2020 Threatens You Not on file 06/16/2020 Screams at You Not on file 06/16/2020 Physically Hurt Not on file 06/16/2020 Intimate Partner Violence Score Not on file 06/16/2020 Depression Answer Date Recorded PHQ Total Score 0 04/30/2024 Stress Answer Date Recorded Stress in your Life Not on file 01/08/2024 Dealing with Stress 3 01/08/2024 Sex and Gender Information Value Date Recorded Sex Assigned at Not on file Legal Sex Male 7:56 AM CDT Gender Identity Not on file Sexual Orientation Not on file Last Filed Vital Signs Vital Sign Reading Time Taken Comments Blood Pressure 130/98 09/03/2024 5:31 PM EDT Pulse 90 09/03/2024 5:31 PM EDT Temperature 36.9 C (98.4 F) 09/03/2024 5:31 PM EDT Respiratory Rate 14 09/03/2024 5:31 PM EDT Oxygen Saturation 97% 09/03/2024 5:31 PM EDT Inhaled Oxygen Concentration - - Weight 111 kg (245 lb 9.6 oz) 09/03/2024 5:31 PM EDT Height 185.4 cm (6' 1 ) 09/03/2024 5:31 PM EDT Body Mass Index 32.4 09/03/2024 5:31 PM EDT Plan of Treatment Health Maintenance Due Date Last Done Comments Dental Cleaning/Exam 1991 HIV Screening 1991 Hepatitis C Screening 1991 Polio Immunization (2 of 3 - 4-dose series) 07/10/1996 06/12/1996 HPV Immunization (1 - Male 3-dose series) 08/03/2006 Hep B Infection Screening - Triple Screen 08/03/2009 Annual Preventive Exam 07/06/2023 07/05/2022 Covid-19 Immunization (1 - season) 2024 Influenza Immunization (#1) 2024 Tetanus Diphtheria and Pertussis Immunization (3 - Td or Tdap) 07/19/2032 07/19/2022, 06/12/1996 Hepatitis B Immunization Completed 003, 03/06/2001, 08/24/2000, Additional history exists HIB Immunization Aged Out No longer e ligible based on patient's age to complete this topic Hepatitis A Immunization Aged Out No longer eligible based on patient's age to complete this topic Pneumococcal Immunization Aged Out No longer eligible based on patient's age to complete this topic Varicella Immunization Aged Out No lo nger eligible based on patient's age to complete this topic Insurance [place] [id number] [place] [address] Care Teams Appeals Representative Relationship Specialty Start Date End Date Provider, [place] [address] PCP - General Consulting Manager 07/05/22
--- OUTSIDE RECORDS SUMMARY | 2025-01-25 03:37 | XMS_ITS | Clinical Summary ---
Author Organization Healthcare Address [address] [place] [address] Care Team Providers Care Pneumatic Tool Repairer Name Role Phone Unavailable Primary Care Provider Unavailabl e Social History Tobacco Use Types Packs/Day Years Used Date Smoking Tobacco: Never Sex and Gender Information Value Date Recorded Sex Assigned at Not on file Legal Sex Male 6:55 PM EDT Gender Identity Not on file Sexual Orientation Not on file Last Filed Vital Signs Vital Sign Reading Time Taken Comments Blood Pressure 104/80 11/20/2017 10:22 AM EDT Pulse 68 11/20/2017 10:22 AM EDT Temperature - - Respiratory Rate - - Oxygen Saturation - - Inhaled Oxygen Concentration - - Weight 95.1 kg (209 lb 10.5 oz) 018 10:22 AM EDT Height 188 cm (6' 2 ) 11/20/2017 10:22 AM EDT Body Mass Index 26.92 11/20/2017 10:22 AM EDT Plan of Treatment Health Maintenance Due Date Last Done Comments [facility]-Depression Screening 1991 [facility]-Infant/Child/Adol SDOH Screenings 1991 [facility]-IPV Vaccines (2 of 3 - 4-dose series) 07/10/1996 06/12/1996 [facility]-Varicella Vaccines (1 of 2 - 13+ 2-dose series) 08/03/2004 [facility]- SDOH Screenings 08/03/2009 [facility]-Adult SDOH Screenings 08/03/2009 HPV Vaccines (1 - 3-dose SCDM series) 08/03/2018 [id number] Vaccine (1 - 2024- season) 2024 [facility]-Influenza Vaccine (#1) 2024 [facility]-DTaP,Tdap,and Td Vaccines (3 - Td or Tdap) 07/19/2032 07/19/2022, 06/12/1996 [facility]-Zoster Vaccines (1 of 2) 08/03/2041 [facility]-Hepatitis B Vaccines Completed 003, 03/06/2001, 08/24/2000, Additional history exists [facility]-HIB Vaccines Aged Out No longer e ligible based on patient's age to complete this topic [facility]-Hepatitis A Vaccines Aged Out No longer eligible based on patient's age to complete this topic [facility]-Pneumococcal Vaccine: Pediatrics (0 to 5 Years) and At-Risk Patients (6 to 49 Years) Aged Out No longer eligible based on patient's age to complete this topic [facility]-Rotavirus Vaccines Aged Out No lo nger eligible based on patient's age to complete this topic
--- OUTSIDE RECORDS SUMMARY | 2025-01-25 03:37 | XMS_ITS | Referral Summary ---
Author Organization [facility] ([place], [place], [place], [place], [place]) Address [address] [place] [address] Care Team Providers Care Associate Professor Of Chemistry Name Role Phone [facility], Provider Not In The System Primary Care Provider Unavailable Encounters Date Type Department Care Team Description 01/23/2025 Travel 01/23/2025 2:01 PM EST - 01/23/2025 5:38 PM EST Emergency [facility] Department [address] [place] [address] Abdominal pain (Primary Dx); Gallstone Discharge Disposition: Home or Self Care from Last 3 Months Allergies No known active allergies Medications famotidine (PEPCID) 40 MG tablet Take 1 tablet (40 mg total) by mouth daily. 30 tablet Active ondansetron (ZOFRAN-ODT) 4 MG disintegrating tablet Take 1 tablet (4 mg total) by mouth every 4 (four) hours as needed for nausea or vomiting for up to 7 days. 20 tablet 5 01/31/20 25 Active Social History Tobacco Use Types Packs/Day Years [...] 01/23/2025 2:00 PM EST Plan of Treatment Not on file Procedures Procedure Name Priority Date/Time Associated Diagnosis [...] Angelique Khan. Transcribed by Micki Goldberg PA-C. us Emilia Archuleta PA-C IMG CT ORDERABLES Final Res ult * Urinalysis, Reflex Microscopic and Culture If Indicated (01/23/2025 2:55 PM EST) Color, UA Colorless 01/23/2025 3:00 PM [facility] Clarity, UA Clear Clear 01/23/2025 3:00 PM [facility] Specific Ashley, UA 1.010 1.005 - 1.030 01/23/2025 3:00 PM [facility] pH, UA 7.5 6.0 - 8.0 01/23/2025 3:00 PM [facility] Leukocytes, UA Negative Negative 01/23/2025 3:00 PM [facility] Nitrite, UA Negative Negative 01/23/2025 3:00 PM [facility] Protein, UA Negative Negative 01/23/2025 3:00 PM [facility] Glucose, UA Normal Normal 01/23/2025 3:00 PM [facility] Ketones, UA Negative Negative 01/23/2025 3:00 PM [facility] Bilirubin, UA Negative Negative 01/23/2025 3:00 PM [facility] Blood, UA Negative Negative 01/23/2025 3:00 PM [facility] Urobilinogen, UA Normal Normal 01/23/2025 3:00 PM [facility] Specimen Source Urine, Clean Catch 01/23/2025 3:00 PM [facility] Urine URINE SPECIMEN COLLECTION, CLEAN CATCH / Unknown 01/23/2025 2:55 PM EST 01/23/2025 2:55 PM EST us Kj Hernandez MD URINE ORDERABLES Final Resu lt [facility] [address] [phone] * PST Top Extra Tubes (01/23/2025 2:07 PM EST) HOLD SPECIMEN ( - BKR) Hold for add-ons. 01/23/2025 4:00 PM EST [facility] Comment:Auto resulted. Blood (Blood, Veinous) Venipuncture / Unknown 01/23/2025 2:07 PM EST 01/23/2025 2:16 PM EST Kj Hernandez MD LAB BLOOD ORDERABLES Final Result Performing Organization Address City/[facility] [[email or web address]] Co de Phone Number [facility] [address] [phone] * Luther Top Extra Tubes (01/23/2025 2:07 PM EST) HOLD SPECIMEN ( - BKR) Hold for add-ons. 01/23/2025 4:00 PM EST [facility] Comment:Auto resulted. Blood (Blood, Veinous) Venipuncture / Unknown 01/23/2025 2:07 PM EST 01/23/2025 2:16 PM EST us Kj Hernandez MD LAB BLOOD ORDERABLES Final Result Performing Organization Address [facility] [[email or web address]] Co de Phone Number [facility] [address] [phone] * Blue Top Extra Tubes (01/23/2025 2:07 PM EST) HOLD SPECIMEN ( - BKR) Hold for add-ons. 01/23/2025 4:00 PM EST [facility] Comment:Auto resulted. Blood (Blood, Veinous) Venipuncture / Unknown 01/23/2025 2:07 PM EST 01/23/2025 2:16 PM EST us Kj Hernandez MD LAB BLOOD ORDERABLES Final Result Performing Organization Address City/[facility] [[email or web address]] Co de Phone Number [facility] [address] [phone] * (ABNORMAL) CBC with Auto Diff (01/23/2025 2:07 PM EST) WBC 8.8 4.2 - 9.1 K/ L 01/23/2025 2:20 PM [facility] RBC 5.49 4.63 - 6.08 M/ L 01/23/2025 2:20 PM [facility] Hemoglobin 16.5 13.7 - 17.5 GM/DL 01/23/2025 2:20 PM [facility] Hematocrit 47.6 40.1 - 51.0 % 01/23/2025 2:20 PM [facility] MCV 87 79 - 92 fL 01/23/2025 2:20 PM [facility] MCH 30.1 25.7 - 32.2 pg 01/23/2025 2:20 PM [facility] MCHC 34.7 32.3 - 36.5 GM/DL 01/23/2025 2:20 PM [facility] RDW 11.9 11.6 - 14.4 % 01/23/2025 2:20 PM [facility] Platelets 296 140 - 375 K/CU MM 01/23/2025 2:20 PM [facility] MPV 8.8(L) 9.4 - 12.4 fL 01/23/2025 2:20 PM [facility] % Neutros 64 34 - 68 % 01/23/2025 2:20 PM [facility] % Lymphs 29 22 - 53 % 01/23/2025 2:20 PM [facility] % Monos 5 5 - 12 % 01/23/2025 2:20 PM [facility] % Eos 1.3 1.0 - 7.0 % 01/23/2025 2:20 PM [facility] % Baso 1 0 - 1 % 01/23/2025 2:20 PM [facility] NRBC Absolute <0.01 0 - 0.012 K/ul 01/23/2025 2:20 PM [facility] # Neutros 5.59(H) 1.78 - 5.38 K/ L 01/23/2025 2:20 PM [facility] # Lymphs 2.54 1.32 - 3.57 K/ L 01/23/2025 2:20 PM EST [facility] # Monos 0.47 0.30 - 0.82 K/ L 01/23/2025 2:20 PM EST [facility] # Eos 0.11 0.04 - 0.54 K/ L 01/23/2025 2:20 PM EST [facility] # Baso 0.06 0.01 - 0.08 K/ L 01/23/2025 2:20 PM EST [facility] % Imm Grans 0.30 0.01 - 0.43 % 01/23/2025 2:20 PM EST [facility] # IG 0.03 0.00 - 0.03 K/uL 01/23/2025 2:20 PM EST [facility] Blood Venipuncture / Unknown 01/23/2025 2:07 PM EST 01/23/2025 2:16 PM EST Narrative [facility] - 01/23/2025 2:20 PM EST [...] Hernandez MD LAB BLOOD ORDERABLES Final Result [facility] [address] [phone] * Lipase (01/23/2025 2:07 PM EST) Lipase 14 <=60 U/L 01/23/2025 2:40 PM EST [facility] Blood Venipuncture / Unknown 01/23/2025 2:07 PM EST 01/23/2025 2:16 PM EST Kj Hernandez MD LAB BLOOD ORDERABLES Final Result [facility] [address] [place] [address], [facility] [phone] * (ABNORMAL) Comprehensive metabolic panel (01/23/2025 2:07 PM EST) Sodium 140 136 - 145 meq/L 01/23/2025 2:40 PM [facility] Potassium 4.6 3.4 - 5.1 meq/L 01/23/2025 2:40 PM [facility] Chloride 107 98 - 112 meq/L 01/23/2025 2:40 PM [facility] CO2 25 22 - 29 meq/L 01/23/2025 2:40 PM [facility] Calcium 10.2 8.4 - 10.2 mg/dL 01/23/2025 2:40 PM [facility] Glucose 104(H) 74 - 100 mg/dL 01/23/2025 2:40 PM [facility] BUN 18.0 8.9 - 20.6 mg/dL 01/23/2025 2:40 PM [facility] Creatinine 0.94 0.60 - 1.20 mg/dL 01/23/2025 2:40 PM [facility] BUN/Creatinine 19 8 - 20 01/23/2025 2:40 PM [facility] eGFR (mL/min/1.73m2) 110 >=60 mL/min/1.7 3m2 01/23/2025 2:40 PM [facility] Comment:ESTIMATED GFR IS NOT ACCURATE CREATININE CLEARANCE IN PREDICTING GLOMERULAR FILTRATION RATE. ESTIMATED GFR IS NOT APPLICABLE FOR DIALYSIS PATIENTS. Albumin 4.5 3.5 - 5.0 g/dL 01/23/2025 2:40 PM [facility] Alkaline Phosphatase 96 40 - 150 U/L 01/23/2025 2:40 PM [facility] ALT 50 <55 U/L 01/23/2025 2:40 PM [facility] AST 28 5 - 34 U/L 01/23/2025 2:40 PM [facility] Total Bilirubin 0.4 0.3 - 1.2 mg/dL 01/23/2025 2:40 PM [facility] Protein, Total 7.4 6.4 - 8.3 g/dL 01/23/2025 2:40 PM EST [facility] Globulin 2.9 2.5 - 4.1 g/dL 01/23/2025 2:40 PM EST [facility] Anion Gap 13(H) 4 - 12 01/23/2025 2:40 PM EST [facility] A/G Ratio 1.6 0.7 - 1.9 01/23/2025 2:40 PM EST [facility] Osmolality Calc 281.6 mOsm/kg 2:40 PM EST [facility] Blood Venipuncture / Unknown 01/23/2025 2:07 PM EST 01/23/2025 2:16 PM EST us Kj Hernandez MD LAB BLOOD ORDERABLES Final Result [facility] [address] [phone] from Last 3 Months Insurance [address] [place] [address] [employer] Care Teams Associate Professor Of Chemistry Relationship Specialty Start Date End Date [facility], Provider Not In The System, [place] [address] PCP - General 01/23/25
[2025-01-25 03:40] VITALS: BP 146/108; PULSE 83; RESP 18; TEMP 36.8; O2SAT 100; BMI 31.6
[2025-01-25 03:45] VITALS: BP 146/108; PULSE 83; RESP 18; O2SAT 100
--- NOTE | 2025-01-25 03:46 | ECG_ITS ---
APPROVED REPORT Exam: Resting ECG HR:68 bpm ECG Measurements Heart Rate 68 AXES NV 152 P 56 QRSd 102 QRS 78 QT 385 T 47 QTc 401 Conclusion SINUS RHYTHM NORMAL ECG Electronically signed by : BRY DOVER, 01/29/2025 13:56:21
--- NOTE | 2025-01-25 03:46 | CT_ITS ---
PROCEDURE INFORMATION: Exam: CT Abdomen And Pelvis With Contrast Exam date and time: 01/25/2025 4:21 AM Age: 34 years old Clinical indication: Abdominal pain; Additional info: R flank pain, dx gallstones, pain in back, nausea TECHNIQUE: Imaging protocol: Computed tomography of the abdomen and pelvis with contrast. Radiation optimization: All CT scans at this facility use at least one of these dose optimization techniques: automated exposure control; mA and/or kV adjustment per patient size (includes targeted exams where dose is matched to clinical indication); or iterative reconstruction. Contrast material: ISOVUE; Contrast volume: 75 ml; Contrast route: IV; COMPARISON: CT CHEST W CON 07/19/2022 10:33 AM FINDINGS: Liver: Enhancing 1.4 cm lesion is seen in the hepatic dome unchanged from prior study 07/19/2022 and likely representing a benign hemangioma. Gallbladder and biliary ducts: Dependent stone is seen in the gallbladder, the gallbladder wall appears mildly thickened but the gallbladder is contracted. No pericholecystic fluid is noted. Pancreas: Normal. No ductal dilation. Spleen: Normal. No splenomegaly. Adrenal glands: Normal. No mass. Kidneys and ureters: Normal. No hydronephrosis. Stomach and bowel: Unremarkable. No obstruction. No mucosal thickening. Appendix: No evidence of appendicitis. Intraperitoneal space: Unremarkable. No free air. No significant fluid collection. Vasculature: Unremarkable. No abdominal aortic aneurysm. Lymph nodes: Unremarkable. No enlarged lymph nodes. Urinary bladder: Unremarkable as visualized. Reproductive: Unremarkable as visualized. Bones/joints: Unremarkable. No acute fracture. Soft tissues: Unremarkable. IMPRESSION: 1. Enhancing 1.4 cm lesion is seen in the hepatic dome unchanged from prior study 07/19/2022 and likely representing a benign hemangioma. 2. Dependent stone is seen in the gallbladder, the gallbladder wall appears mildly thickened but the gallbladder is contracted. No pericholecystic fluid is noted.
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
[2025-01-25 04:02] LABS: Hematocrit 44.5 % (42.0-52.0); Hemoglobin 15.8 g/dL (14.1-18.0); Immature Granulocytes % 0.2 %; Mean Corpuscular HGB Conc 35.5 g/dL (31.8-35.4); Mean Corpuscular Hemoglobin 30.6 pg (27.0-31.2); Mean Corpuscular Volume 86.1 fl (80-94); Nucleated Red Blood Cells % 0 %; Platelet Count 282 K/mm3 (142-424); Red Blood Count 5.17 M/mm3 (4.60-6.20); Red Cell Distribution Width-SD 37.0 fL; White Blood Count 9.1 K/mm3 (4.8-10.8)
[2025-01-25 04:11] LABS: Alanine Aminotransferase 48 U/L (12-78); Albumin Level 4.6 g/dl (3.5-5.0); Albumin/Globulin Ratio 1.8 (1.1-1.8); Alkaline Phosphatase 88 U/L (38-126); Anion Gap 9.9 mEq/L (5-15); Aspartate Amino Transferase 32 U/L (17-59); Bilirubin,Total 0.5 mg/dl (0.2-1.3); Blood Urea Nitrogen 18 mg/dl (9-20); Calcium 9.9 mg/dl (8.4-10.2); Carbon Dioxide 26 mmol/L (22.0-30.0); Chloride 104 mmol/L (98-107); Creatinine Clearance Estimated 180 mL/min (50-200); Creatinine,Serum 0.90 mg/dl (0.66-1.25); Estimated Glomerular Filt Rate 97 ml/min (>60); GFR (African American) 118 ML/MIN (>60); Globulin 2.5 g/dL (1.3-3.2); Glucose 93 mg/dl (74-100); Lipase 38 U/L (23-300); Potassium 3.9 mmoL/L (3.5-5.1); Sodium 136 mmol/L (136-145); Total Protein,Serum 7.1 g/dl (6.3-8.2)
[2025-01-25 04:23] LABS: Troponin I < 0.01 ng/ml (0.00-0.034)
[2025-01-25] MEDS: SODIUM CHLORIDE 0.9% 10ML SYR (RAD ONLY) 10 ML IV (04:27)
[2025-01-25] MEDS: IOPAMIDOL-370 (76%);100ML BOTTLE 75 ML IV (04:27)
[2025-01-25 05:00] VITALS: BP 151/106; PULSE 63; RESP 18; O2SAT 98
[2025-01-25 05:09] LABS: Microscopic, Urine URINE MICROSCOPIC (MICROSCOPIC)
[2025-01-25 05:17] LABS: Bilirubin,Urine Negative (Negative); Color,Urine YELLOW (Yellow); Glucose,Urine (UA) Negative (Negative); Ketones,Urine Negative (Negative); Leukocyte Esterase,Urine Negative (Negative); PH,Urine 6.5 (5.0-8.5); Protein,Urine Negative (Negative); Specific Gravity, Urine <= 1.005 (1.005-1.030); Urobilinogen,Urine 0.2 EU/dl (0.2)
[2025-01-25 05:21] VITALS: BP 139/89; PULSE 78; RESP 18; TEMP 37.2; O2SAT 98
[2025-01-25 05:54] LABS: Squamous Epithelial Cell,Urine Occasional #/hpf (0-5)
[2025-01-26 10:06] LABS: Hepatitis C Ab Qual. W/ RFX NEGATIVE (Negative)
== END 2025-01-25 05:30 | disposition home or self-care (01) ==
PROVIDERS: Emergency Provider Emergency Medicine; PCP Family Medicine
DX: R10.A1 Flank pain, right side (principal); K80.20 Calculus of gallbladder without cholecystitis without obstruction; F17.210 Nicotine dependence, cigarettes, uncomplicated
CPT/HCPCS: 74177; 80053; 81001; 83605; 83690; 84484; 85025; 86803; 87389; 93005; 99285; Q9967

== ENCOUNTER 2025-01-27 05:16 | Emergency (ER) | payer BC, SELFPAY ==
--- OUTSIDE RECORDS SUMMARY | 2025-01-23 14:01 | XMS_ITS | Encounter Summary ---
Author Organization [employer] ([place], [place], [place], [place], [place]) Address [address] [place] [address] Care Team Providers Care Battery Recharger Name Role Phone [facility], Provider Not In The System Primary Care Provider Unavailable Reason for Visit * Reason Comments Abdominal Pain Encounter Details Date Type Department Care Team (Late st Contact Info) Description 01/23/2025 2:01 PM EST - 01/23/2025 5:38 PM EST Emergency [facility] Emergency Department [address] [place] [id number] Abdominal pain (Primary Dx); Gallstone Discharge [...] to ER if symptoms worse or different. P ROLLER P ROLLER * Attachments The following attachments cannot be sent through Care Everywhere. * Cholelithiasis Dsai-bo-Nbdu (South African) * Abdominal Pain Adult (South African) * [place] Diet (South African) documented in this encounter Medications at Time [...] time of discharge. Stella Chirinos RN 01/23/25 [id number] P ROLLER * Sukh Hobbs RN - 01/23/2025 1:59 PM EST Burning belly pain. P ROLLER documented in this encounter Plan of Treatment [...] Color, UA Colorless 01/23/2025 3:00 PM EST [facility] Clarity, UA Clear Clear 01/23/2025 3:00 PM EST [facility] Specific [place], UA 1.010 1.005 - 1.030 01/23/2025 3:00 PM EST [facility] pH, UA 7.5 6.0 - 8.0 01/23/2025 3:00 PM [facility] Leukocytes, UA Negative Negative 01/23/2025 3:00 PM [facility] Nitrite, UA Negative Negative 01/23/2025 3:00 PM [facility] Protein, UA Negative Negative 01/23/2025 3:00 PM [facility] Glucose, UA Normal Normal 01/23/2025 3:00 PM [facility] Ketones, UA Negative Negative 01/23/2025 3:00 PM [facility] Bilirubin, UA Negative Negative 01/23/2025 3:00 PM [facility] Blood, UA Negative Negative 01/23/2025 3:00 PM [facility] Urobilinogen, UA Normal Normal 01/23/2025 3:00 PM [facility] Specimen Source Urine, Clean Catch 01/23/2025 3:00 PM [facility] Urine URINE SPECIMEN COLLECTION, CLEAN CATCH / Unknown 01/23/2025 2:55 PM EST 01/23/2025 2:55 PM EST Kj Hernandez MD URINE ORDERABLES Final Resu lt Performing Organization Address City/[facility]/ZIP Co de Phone Number [facility] [address] [phone] * Luther Top Extra Tubes (01/23/2025 2:07 PM EST) HOLD SPECIMEN (SJ - BKR) Hold for add-ons. 01/23/2025 4:00 PM EST [facility] Comment:Auto resulted. Blood (Blood, Veinous) Venipuncture / Unknown 01/23/2025 2:07 PM EST 01/23/2025 2:16 PM EST Kj Hernandez MD LAB BLOOD ORDERABLES Final Result Performing Organization Address City/[facility]/ZIP Co de Phone Number [facility] [address] [phone] * PST Top Extra Tubes (01/23/2025 2:07 PM EST) HOLD SPECIMEN ( - BKR) Hold for add-ons. 01/23/2025 4:00 PM EST [facility] Comment:Auto resulted. Blood (Blood, Veinous) Venipuncture / Unknown 01/23/2025 2:07 PM EST 01/23/2025 2:16 PM EST Kj Hernandez MD LAB BLOOD ORDERABLES Final Result Performing Organization Address City/[facility]/ZIP Co de Phone Number [facility] [address] [phone] * Blue Top Extra Tubes (01/23/2025 2:07 PM EST) HOLD SPECIMEN ( - BKR) Hold for add-ons. 01/23/2025 4:00 PM EST [facility] Comment:Auto resulted. Blood (Blood, Veinous) Venipuncture / Unknown 01/23/2025 2:07 PM EST 01/23/2025 2:16 PM EST Kj Hernandez MD LAB BLOOD ORDERABLES Final Result Performing Organization Address [facility] Co de Phone Number [facility] [address] [phone] * Lipase (01/23/2025 2:07 PM EST) Lipase 14 <=60 U/L 01/23/2025 2:40 PM EST [facility] Blood Venipuncture / Unknown 01/23/2025 2:07 PM EST 01/23/2025 2:16 PM EST Kj Hernandez MD LAB BLOOD ORDERABLES Final Result Performing Organization Address [facility] Co de Phone Number [facility] [address] [phone] * (ABNORMAL) Comprehensive metabolic panel (01/23/2025 2:07 PM EST) Sodium 140 136 - 145 meq/L 01/23/2025 2:40 PM [facility] Potassium 4.6 3.4 - 5.1 meq/L 01/23/2025 2:40 PM [facility] Chloride 107 98 - 112 meq/L 01/23/2025 2:40 PM [facility] CO2 25 22 - 29 meq/L 01/23/2025 2:40 PM [facility] Calcium 10.2 8.4 - 10.2 mg/dL 01/23/2025 2:40 PM [facility] Glucose 104(H) 74 - 100 mg/dL 01/23/2025 2:40 PM [facility] BUN 18.0 8.9 - 20.6 mg/dL 01/23/2025 2:40 PM [facility] Creatinine 0.94 0.60 - 1.20 mg/dL 01/23/2025 2:40 PM [facility] BUN/Creatinine 19 8 - 20 01/23/2025 2:40 PM [facility] eGFR (mL/min/1.73m2) 110 >=60 mL/min/1.7 3m2 01/23/2025 2:40 PM [facility] Comment:ESTIMATED GFR IS NOT ACCURATE CREATININE CLEARANCE IN PREDICTING GLOMERULAR FILTRATION RATE. ESTIMATED GFR IS NOT APPLICABLE FOR DIALYSIS PATIENTS. Albumin 4.5 3.5 - 5.0 g/dL 01/23/2025 2:40 PM [facility] Alkaline Phosphatase 96 40 - 150 U/L 01/23/2025 2:40 PM [facility] ALT 50 <55 U/L 01/23/2025 2:40 PM [facility] AST 28 5 - 34 U/L 01/23/2025 2:40 PM [facility] Total Bilirubin 0.4 0.3 - 1.2 mg/dL 01/23/2025 2:40 PM [facility] Protein, Total 7.4 6.4 - 8.3 g/dL 01/23/2025 2:40 PM [facility] Globulin 2.9 2.5 - 4.1 g/dL 01/23/2025 2:40 PM [facility] Anion Gap 13(H) 4 - 12 01/23/2025 2:40 PM [facility] A/G Ratio 1.6 0.7 - 1.9 01/23/2025 2:40 PM [facility] Osmolality Calc 281.6 mOsm/kg 2:40 PM [facility] Blood Venipuncture / Unknown 01/23/2025 2:07 PM EST 01/23/2025 2:16 PM EST us Kj Hernandez MD LAB BLOOD ORDERABLES Final Result [facility] [address] [phone] * (ABNORMAL) CBC with Auto Diff (01/23/2025 2:07 PM EST) WBC 8.8 4.2 - 9.1 K/ L 01/23/2025 2:20 PM [facility] RBC 5.49 4.63 - 6.08 M/ L 01/23/2025 2:20 PM [facility] Hemoglobin 16.5 13.7 - 17.5 GM/DL 01/23/2025 2:20 PM [facility] Hematocrit 47.6 40.1 - 51.0 % 01/23/2025 2:20 PM [facility] MCV 87 79 - 92 fL 01/23/2025 2:20 PM [facility] MCH 30.1 25.7 - 32.2 pg 01/23/2025 2:20 PM [facility] MCHC 34.7 32.3 - 36.5 GM/DL 01/23/2025 2:20 PM [facility] RDW 11.9 11.6 - 14.4 % 01/23/2025 2:20 PM [facility] Platelets 296 140 - 375 K/CU MM 01/23/2025 2:20 PM [facility] MPV 8.8(L) 9.4 - 12.4 fL 01/23/2025 2:20 PM [facility] % Neutros 64 34 - 68 % 01/23/2025 2:20 PM [facility] % Lymphs 29 22 - 53 % 01/23/2025 2:20 PM [facility] % Monos 5 5 - 12 % 01/23/2025 2:20 PM [facility] % Eos 1.3 1.0 - 7.0 % 01/23/2025 2:20 PM [facility] % Baso 1 0 - 1 % 01/23/2025 2:20 PM [facility] NRBC Absolute <0.01 0 - 0.012 K/ul 01/23/2025 2:20 PM [facility] # Neutros 5.59(H) 1.78 - 5.38 K/ L 01/23/2025 2:20 PM [facility] # Lymphs 2.54 1.32 - 3.57 K/ L 01/23/2025 2:20 PM [facility] # Monos 0.47 0.30 - 0.82 K/ L 01/23/2025 2:20 PM [facility] # Eos 0.11 0.04 - 0.54 K/ L 01/23/2025 2:20 PM [facility] # Baso 0.06 0.01 - 0.08 K/ L 01/23/2025 2:20 PM [facility] % Imm Grans 0.30 0.01 - 0.43 % 01/23/2025 2:20 PM [facility] # IG 0.03 0.00 - 0.03 K/uL 01/23/2025 2:20 PM [facility] Blood Venipuncture / Unknown 01/23/2025 2:07 PM EST 01/23/2025 2:16 PM [facility] - 01/23/2025 2:20 PM EST [...] Hernandez MD LAB BLOOD ORDERABLES Final Result [facility] [address] [place] [address], [facility] [phone] documented in this encounter Visit Diagnoses Diagnosis [...] Desai) documented in this encounter Care Teams Battery Recharger Relationship Specialty Start Date End Date [facility], Provider Not In The System, [place] [address] PCP - General 01/23/25 documented as of this encounter
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
[2025-01-27 05:22] VITALS: BP 131/91; PULSE 95; RESP 20; TEMP 36.5; O2SAT 100; BMI 32.5
--- OUTSIDE RECORDS SUMMARY | 2025-01-27 05:22 | XMS_ITS | Clinical Summary ---
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
--- OUTSIDE RECORDS SUMMARY | 2025-01-27 05:23 | XMS_ITS | Clinical Summary ---
Author Organization [facility] Address [address] [place] [address] Care Team Providers Care Audio Visual Arts Director Name Role Phone Unavailable Primary Care Provider [...] Vaccines (1 - 3-dose SCDM series) 08/03/2018 [id number] Vaccine (1 - 2024- season) 2024 [id number] [...]
--- OUTSIDE RECORDS SUMMARY | 2025-01-27 05:23 | XMS_ITS | Referral Summary ---
Author Organization [employer] ([place], [place], [place], [place], [place]) Address [address] [facility] [place] [address] Care Team Providers Care Electrical And Electronic Assembler Name Role Phone [facility], Provider Not In The System Primary Care Provider Unavailable Encounters Date Type Department Care Team Description 01/23/2025 Travel 01/23/2025 2:01 PM EST - 01/23/2025 5:38 PM EST Emergency [facility] Emergency Department [address] [place] [address] Abdominal pain (Primary Dx); Gallstone [...] for up to 7 days. 20 tablet 01/31/20 25 Active Social History Tobacco Use [...] EST) Color, UA Colorless 01/23/2025 3:00 PM [facility] Clarity, UA Clear Clear 01/23/2025 3:00 PM [facility] Specific [place], UA 1.010 1.005 - 1.030 01/23/2025 3:00 PM [facility] pH, UA 7.5 6.0 - 8.0 01/23/2025 3:00 PM [facility] Leukocytes, UA Negative Negative 01/23/2025 3:00 PM [facility] Nitrite, UA Negative Negative 01/23/2025 3:00 PM [facility] Protein, UA Negative Negative 01/23/2025 3:00 PM [facility] Glucose, UA Normal Normal 01/23/2025 3:00 PM [facility] Ketones, UA Negative Negative 01/23/2025 3:00 PM [facility] Bilirubin, UA Negative Negative 01/23/2025 3:00 PM [facility] Blood, UA Negative Negative 01/23/2025 3:00 PM [facility] Urobilinogen, UA Normal Normal 01/23/2025 3:00 PM [facility] Specimen Source Urine, Clean Catch 01/23/2025 3:00 PM [facility] Urine URINE SPECIMEN COLLECTION, CLEAN CATCH / Unknown 01/23/2025 2:55 PM EST 01/23/2025 2:55 PM EST us Kj Hernandez MD URINE ORDERABLES Final Resu lt [facility] [address] [phone] * PST Top Extra Tubes (01/23/2025 2:07 PM EST) HOLD SPECIMEN ( - BKR) Hold for add-ons. 01/23/2025 4:00 PM EST [facility] Comment:Auto resulted. Blood (Blood, Veinous) Venipuncture / Unknown 01/23/2025 2:07 PM EST 01/23/2025 2:16 PM EST Kj Hernandez MD LAB BLOOD ORDERABLES Final Result Performing Organization Address City/[facility] Co de Phone Number [facility] [address] [phone] * Luther Top Extra Tubes (01/23/2025 2:07 PM EST) HOLD SPECIMEN ( - BKR) Hold for add-ons. 01/23/2025 4:00 PM EST [facility] Comment:Auto resulted. Blood (Blood, Veinous) Venipuncture / Unknown 01/23/2025 2:07 PM EST 01/23/2025 2:16 PM EST us Kj Hernandez MD LAB BLOOD ORDERABLES Final Result Performing Organization Address [facility] Co de Phone Number [facility] [address] [phone] * Blue Top Extra Tubes (01/23/2025 2:07 PM EST) HOLD SPECIMEN ( - BKR) Hold for add-ons. 01/23/2025 4:00 PM EST [facility] Comment:Auto resulted. Blood (Blood, Veinous) Venipuncture / Unknown 01/23/2025 2:07 PM EST 01/23/2025 2:16 PM EST us Kj Hernandez MD LAB BLOOD ORDERABLES Final Result Performing Organization Address City/[facility] Co de Phone Number [facility] [address] [phone] * (ABNORMAL) CBC with Auto Diff (01/23/2025 2:07 PM EST) WBC 8.8 4.2 - 9.1 K/ L 01/23/2025 2:20 PM [facility] RBC 5.49 4.63 - 6.08 M/ L 01/23/2025 2:20 PM [facility] Hemoglobin 16.5 13.7 - 17.5 GM/DL 01/23/2025 2:20 PM [facility] Hematocrit 47.6 40.1 - 51.0 % 01/23/2025 2:20 PM [facility] MCV 87 79 - 92 fL 01/23/2025 2:20 PM [facility] MCH 30.1 25.7 - 32.2 pg 01/23/2025 2:20 PM [facility] MCHC 34.7 32.3 - 36.5 GM/DL 01/23/2025 2:20 PM [facility] RDW 11.9 11.6 - 14.4 % 01/23/2025 2:20 PM [facility] Platelets 296 140 - 375 K/CU MM 01/23/2025 2:20 PM [facility] MPV 8.8(L) 9.4 - 12.4 fL 01/23/2025 2:20 PM [facility] % Neutros 64 34 - 68 % 01/23/2025 2:20 PM [facility] % Lymphs 29 22 - 53 % 01/23/2025 2:20 PM [facility] % Monos 5 5 - 12 % 01/23/2025 2:20 PM [facility] % Eos 1.3 1.0 - 7.0 % 01/23/2025 2:20 PM [facility] % Baso 1 0 - 1 % 01/23/2025 2:20 PM [facility] NRBC Absolute <0.01 0 - 0.012 K/ul 01/23/2025 2:20 PM [facility] # Neutros 5.59(H) 1.78 - 5.38 K/ L 01/23/2025 2:20 PM [facility] # Lymphs 2.54 1.32 - 3.57 K/ L 01/23/2025 2:20 PM EST [facility] # Monos 0.47 0.30 - 0.82 K/ L 01/23/2025 2:20 PM EST [facility] # Eos 0.11 0.04 - 0.54 K/ L 01/23/2025 2:20 PM EST [facility] # Baso 0.06 0.01 - 0.08 K/ L 01/23/2025 2:20 PM EST [facility] % Imm Grans 0.30 0.01 - 0.43 % 01/23/2025 2:20 PM EST [facility] # IG 0.03 0.00 - 0.03 K/uL 01/23/2025 2:20 PM EST [facility] Blood Venipuncture / Unknown 01/23/2025 2:07 PM EST 01/23/2025 2:16 PM EST Narrative [facility] - 01/23/2025 2:20 PM EST [...] Hernandez MD LAB BLOOD ORDERABLES Final Result [facility] [address] [phone] * Lipase (01/23/2025 2:07 PM EST) Lipase 14 <=60 U/L 01/23/2025 2:40 PM EST [facility] Blood Venipuncture / Unknown 01/23/2025 2:07 PM EST 01/23/2025 2:16 PM EST Kj Hernandez MD LAB BLOOD ORDERABLES Final Result [facility] [address] [place] [address], [facility] [phone] * (ABNORMAL) Comprehensive metabolic panel (01/23/2025 2:07 PM EST) Sodium 140 136 - 145 meq/L 01/23/2025 2:40 PM [facility] Potassium 4.6 3.4 - 5.1 meq/L 01/23/2025 2:40 PM [facility] Chloride 107 98 - 112 meq/L 01/23/2025 2:40 PM [facility] CO2 25 22 - 29 meq/L 01/23/2025 2:40 PM [facility] Calcium 10.2 8.4 - 10.2 mg/dL 01/23/2025 2:40 PM [facility] Glucose 104(H) 74 - 100 mg/dL 01/23/2025 2:40 PM [facility] BUN 18.0 8.9 - 20.6 mg/dL 01/23/2025 2:40 PM [facility] Creatinine 0.94 0.60 - 1.20 mg/dL 01/23/2025 2:40 PM [facility] BUN/Creatinine 19 8 - 20 01/23/2025 2:40 PM [facility] eGFR (mL/min/1.73m2) 110 >=60 mL/min/1.7 3m2 01/23/2025 2:40 PM [facility] Comment:ESTIMATED GFR IS NOT ACCURATE CREATININE CLEARANCE IN PREDICTING GLOMERULAR FILTRATION RATE. ESTIMATED GFR IS NOT APPLICABLE FOR DIALYSIS PATIENTS. Albumin 4.5 3.5 - 5.0 g/dL 01/23/2025 2:40 PM [facility] Alkaline Phosphatase 96 40 - 150 U/L 01/23/2025 2:40 PM [facility] ALT 50 <55 U/L 01/23/2025 2:40 PM [facility] AST 28 5 - 34 U/L 01/23/2025 2:40 PM [facility] Total Bilirubin 0.4 0.3 - 1.2 mg/dL 01/23/2025 2:40 PM [facility] Protein, Total 7.4 6.4 - 8.3 g/dL 01/23/2025 2:40 PM EST [facility] Globulin 2.9 2.5 - 4.1 g/dL 01/23/2025 2:40 PM EST [facility] Anion Gap 13(H) 4 - 12 01/23/2025 2:40 PM EST [facility] A/G Ratio 1.6 0.7 - 1.9 01/23/2025 2:40 PM EST [facility] Osmolality Calc 281.6 mOsm/kg 2:40 PM EST [facility] Blood Venipuncture / Unknown 01/23/2025 2:07 PM EST 01/23/2025 2:16 PM EST us Kj Hernandez MD LAB BLOOD ORDERABLES Final Result [facility] [address] [phone] from Last 3 Months Insurance [address] [place] [address] [employer] Care Teams Electrical And Electronic Assembler Relationship Specialty Start Date End Date [facility], Provider Not In The System, [place] [address] PCP - General 01/23/25
--- OUTSIDE RECORDS SUMMARY | 2025-01-27 05:23 | XMS_ITS | Encounter Summary ---
Author Organization [employer] ([place], [place], [place], [place], [place]) Address [address] [place] [address] Care Team Providers Care Engineering Executive Name Role Phone [facility], Provider Not In The System Primary [...] on filedocumented in this encounter Care Teams Engineering Executive Relationship Specialty Start Date End Date Inderjit Provider Not In The System, [place] [address] PCP - General 01/23/25 documented as of this encounter
--- OUTSIDE RECORDS SUMMARY | 2025-01-27 05:23 | XMS_ITS | Clinical Summary ---
Author Organization [employer] ([place], [place], [place], [place], [place]) Address [address] [place] [address] Care Team Providers Care Industrial Radiographer Name Role Phone [facility], Provider Not In The System Primary Care [...] EST - 01/23/2025 5:38 PM EST Emergency [facility] Emergency Department [address] [place] [address] Abdominal pain (Primary Dx); Gallstone [...] Tobacco Cessation Counseling and Screening (12+) 2003 HIV Screening 08/03/2006 Hepatitis C Screening 08/03/2009 Lipid Panel 2011 COVID-19 VACCINE (2023-2 5 season) 2024 Influenza Vaccine (#1) 2024 [...] EST) Color, UA Colorless 01/23/2025 3:00 PM [facility] Clarity, UA Clear Clear 01/23/2025 3:00 PM [facility] Specific [place], UA 1.010 1.005 - 1.030 01/23/2025 3:00 PM [facility] pH, UA 7.5 6.0 - 8.0 01/23/2025 3:00 PM [facility] Leukocytes, UA Negative Negative 01/23/2025 3:00 PM [facility] Nitrite, UA Negative Negative 01/23/2025 3:00 PM [facility] Protein, UA Negative Negative 01/23/2025 3:00 PM [facility] Glucose, UA Normal Normal 01/23/2025 3:00 PM [facility] Ketones, UA Negative Negative 01/23/2025 3:00 PM [facility] Bilirubin, UA Negative Negative 01/23/2025 3:00 PM [facility] Blood, UA Negative Negative 01/23/2025 3:00 PM [facility] Urobilinogen, UA Normal Normal 01/23/2025 3:00 PM [facility] Specimen Source Urine, Clean Catch 01/23/2025 3:00 PM EST [facility] Urine URINE SPECIMEN COLLECTION, CLEAN CATCH / Unknown 01/23/2025 2:55 PM EST 01/23/2025 2:55 PM EST Kj Hernandez MD URINE ORDERABLES Final Resu lt Performing Organization Address City/[facility]/ZIP Co de Phone Number [facility] [address] [phone] * PST Top Extra Tubes (01/23/2025 2:07 PM EST) HOLD SPECIMEN (SJ - BKR) Hold for add-ons. 01/23/2025 4:00 PM EST [facility] Comment:Auto resulted. Blood (Blood, Veinous) Venipuncture / Unknown 01/23/2025 2:07 PM EST 01/23/2025 2:16 PM EST Kj Hernandez MD LAB BLOOD ORDERABLES Final Result Performing Organization Address [facility] Co de Phone Number [facility] [address] [phone] * Luther Top Extra Tubes (01/23/2025 2:07 PM EST) HOLD SPECIMEN (SJ - BKR) Hold for add-ons. 01/23/2025 4:00 PM EST [facility] Comment:Auto resulted. Blood (Blood, Veinous) Venipuncture / Unknown 01/23/2025 2:07 PM EST 01/23/2025 2:16 PM EST us Kj Hernandez MD LAB BLOOD ORDERABLES Final Result Performing Organization Address City/[facility] Co de Phone Number [facility] [address] [phone] * Blue Top Extra Tubes (01/23/2025 2:07 PM EST) HOLD SPECIMEN (SJ - BKR) Hold for add-ons. 01/23/2025 4:00 PM [facility] Comment:Auto resulted. Blood (Blood, Veinous) Venipuncture / Unknown 01/23/2025 2:07 PM EST 01/23/2025 2:16 PM EST us Kj Hernandez MD LAB BLOOD ORDERABLES Final Result [facility] [address] [phone] * (ABNORMAL) CBC with Auto Diff (01/23/2025 2:07 PM EST) WBC 8.8 4.2 - 9.1 K/ L 01/23/2025 2:20 PM [facility] RBC 5.49 4.63 - 6.08 M/ L 01/23/2025 2:20 PM [facility] Hemoglobin 16.5 13.7 - 17.5 GM/DL 01/23/2025 2:20 PM [facility] Hematocrit 47.6 40.1 - 51.0 % 01/23/2025 2:20 PM [facility] MCV 87 79 - 92 fL 01/23/2025 2:20 PM [facility] MCH 30.1 25.7 - 32.2 pg 01/23/2025 2:20 PM [facility] MCHC 34.7 32.3 - 36.5 GM/DL 01/23/2025 2:20 PM [facility] RDW 11.9 11.6 - 14.4 % 01/23/2025 2:20 PM [facility] Platelets 296 140 - 375 K/CU MM 01/23/2025 2:20 PM [facility] MPV 8.8(L) 9.4 - 12.4 fL 01/23/2025 2:20 PM [facility] % Neutros 64 34 - 68 % 01/23/2025 2:20 PM [facility] % Lymphs 29 22 - 53 % 01/23/2025 2:20 PM [facility] % Monos 5 5 - 12 % 01/23/2025 2:20 PM EST [facility] % Eos 1.3 1.0 - 7.0 % 01/23/2025 2:20 PM [facility] % Baso 1 0 - 1 % 01/23/2025 2:20 PM [facility] NRBC Absolute <0.01 0 - 0.012 K/ul 01/23/2025 2:20 PM [facility] # Neutros 5.59(H) 1.78 - 5.38 K/ L 01/23/2025 2:20 PM [facility] # Lymphs 2.54 1.32 - 3.57 K/ L 01/23/2025 2:20 PM [facility] # Monos 0.47 0.30 - 0.82 K/ L 01/23/2025 2:20 PM [facility] # Eos 0.11 0.04 - 0.54 K/ L 01/23/2025 2:20 PM [facility] # Baso 0.06 0.01 - 0.08 K/ L 01/23/2025 2:20 PM [facility] % Imm Grans 0.30 0.01 - 0.43 % 01/23/2025 2:20 PM [facility] # IG 0.03 0.00 - 0.03 K/uL 01/23/2025 2:20 PM [facility] Blood Venipuncture / Unknown 01/23/2025 2:07 PM EST 01/23/2025 2:16 PM EST Narrative [facility] - 01/23/2025 2:20 PM EST When [...] Hernandez MD LAB BLOOD ORDERABLES Final Result [facility] [address] [phone] * Lipase (01/23/2025 2:07 PM EST) Lipase 14 <=60 U/L 01/23/2025 2:40 PM [facility] Blood Venipuncture / Unknown 01/23/2025 2:07 PM EST 01/23/2025 2:16 PM EST Kj Hernandez MD LAB BLOOD ORDERABLES Final Result [facility] [address] [phone] * (ABNORMAL) Comprehensive metabolic panel (01/23/2025 2:07 PM EST) Sodium 140 136 - 145 meq/L 01/23/2025 2:40 PM [facility] Potassium 4.6 3.4 - 5.1 meq/L 01/23/2025 2:40 PM [facility] Chloride 107 98 - 112 meq/L 01/23/2025 2:40 PM [facility] CO2 25 22 - 29 meq/L 01/23/2025 2:40 PM [facility] Calcium 10.2 8.4 - 10.2 mg/dL 01/23/2025 2:40 PM [facility] Glucose 104(H) 74 - 100 mg/dL 01/23/2025 2:40 PM [facility] BUN 18.0 8.9 - 20.6 mg/dL 01/23/2025 2:40 PM [facility] Creatinine 0.94 0.60 - 1.20 mg/dL 01/23/2025 2:40 PM [facility] BUN/Creatinine 19 8 - 20 01/23/2025 2:40 PM [facility] eGFR (mL/min/1.73m2) 110 >=60 mL/min/1.7 3m2 01/23/2025 2:40 PM [facility] Comment:ESTIMATED GFR IS NOT ACCURATE CREATININE CLEARANCE IN PREDICTING GLOMERULAR FILTRATION RATE. ESTIMATED GFR IS NOT APPLICABLE FOR DIALYSIS PATIENTS. Albumin 4.5 3.5 - 5.0 g/dL 01/23/2025 2:40 PM [facility] Alkaline Phosphatase 96 40 - 150 U/L 01/23/2025 2:40 PM [facility] ALT 50 <55 U/L 01/23/2025 2:40 PM [facility] AST 28 5 - 34 U/L 01/23/2025 2:40 PM [facility] Total Bilirubin 0.4 0.3 - 1.2 mg/dL 01/23/2025 2:40 PM [facility] Protein, Total 7.4 6.4 - 8.3 g/dL 01/23/2025 2:40 PM [facility] Globulin 2.9 2.5 - 4.1 g/dL 01/23/2025 2:40 PM [facility] Anion Gap 13(H) 4 - 12 01/23/2025 2:40 PM [facility] A/G Ratio 1.6 0.7 - 1.9 01/23/2025 2:40 PM [facility] Osmolality Calc 281.6 mOsm/kg 2:40 PM [facility] Blood Venipuncture / Unknown 01/23/2025 2:07 PM EST 01/23/2025 2:16 PM EST us Kj Hernandez MD LAB BLOOD ORDERABLES Final Result Performing Organization Address City/State/[facility] Co de Phone Number [facility] [address] [phone] from Last 3 Months Insurance BLUE CROSS/BLUE SHI[employer] Care Teams Industrial Radiographer Relationship Specialty Start Date End Date [facility], Provider Not In The System, [place] [address] PCP - General 01/23/25
--- NOTE | 2025-01-27 05:48 | PC.NURSE ---
0548 - This RN took medications to patients room to be given and patient was sitting on the side of the bed and stated that his pain was completely gone and he didn't know if he needed the medications. Dr. Borges came to bedside to talk with the patient about decision going forward with care and patient decided he wanted to leave instead of having any medications or testing done.
[2025-01-27 05:55] LABS: Alanine Aminotransferase 52 U/L (12-78); Albumin Level 4.8 g/dl (3.5-5.0); Albumin/Globulin Ratio 1.7 (1.1-1.8); Alkaline Phosphatase 96 U/L (38-126); Anion Gap 12.1 mEq/L (5-15); Aspartate Amino Transferase 35 U/L (17-59); Bilirubin,Total 0.5 mg/dl (0.2-1.3); Blood Urea Nitrogen 16 mg/dl (9-20); Calcium 10.5 mg/dl (8.4-10.2); Carbon Dioxide 25 mmol/L (22.0-30.0); Chloride 103 mmol/L (98-107); Creatinine Clearance Estimated 202 mL/min (50-200); Creatinine,Serum 0.80 mg/dl (0.66-1.25); Estimated Glomerular Filt Rate 111 ml/min (>60); GFR (African American) 135 ML/MIN (>60); Globulin 2.8 g/dL (1.3-3.2); Glucose 109 mg/dl (74-100); Lipase 76 U/L (23-300); Potassium 4.1 mmoL/L (3.5-5.1); Sodium 136 mmol/L (136-145); Total Protein,Serum 7.6 g/dl (6.3-8.2)
[2025-01-27 05:56] VITALS: BP 172/91; PULSE 88; RESP 20; TEMP 36.6; O2SAT 100
--- NOTE | 2025-01-27 05:57 | PC.NURSE ---
IV discontinued. Catheter tip intact. Bleeding controlled.
[2025-01-27 06:15] LABS: Hematocrit 46.4 % (42.0-52.0); Hemoglobin 16.4 g/dL (14.1-18.0); Immature Granulocytes % 0.4 %; Mean Corpuscular HGB Conc 35.3 g/dL (31.8-35.4); Mean Corpuscular Hemoglobin 30.3 pg (27.0-31.2); Mean Corpuscular Volume 85.8 fl (80-94); Nucleated Red Blood Cells % 0 %; Platelet Count 298 K/mm3 (142-424); Red Blood Count 5.41 M/mm3 (4.60-6.20); Red Cell Distribution Width-SD 36.7 fL; White Blood Count 8.9 K/mm3 (4.8-10.8)
== END 2025-01-27 05:57 | disposition home or self-care (01) ==
PROVIDERS: Emergency Provider Emergency Medicine; PCP Family Medicine
DX: K80.20 Calculus of gallbladder without cholecystitis without obstruction (principal); Z90.49 Acquired absence of other specified parts of digestive tract
CPT/HCPCS: 80053; 83690; 85025; 99284; J1885; J2270; J2405; J7120

== ENCOUNTER 2025-02-06 08:44 | Outpatient (CLI) | payer BC, SELFPAY ==
[2025-02-06 08:12] VITALS: BMI 30.8
== END 2025-02-06 23:59 | disposition home or self-care (01) ==
LOC: PREOP 08:45
PROVIDERS: PCP Family Medicine; Visit Provider Surgery
DX: K80.20 Calculus of gallbladder without cholecystitis without obstruction (principal); Z01.818 Encounter for other preprocedural examination

== ENCOUNTER 2025-02-09 07:59 | Outpatient (CLI) | payer BC, SELFPAY ==
--- OUTSIDE RECORDS SUMMARY | 2025-01-23 14:01 | XMS_ITS | Encounter Summary ---
Author Organization [employer] ([place], [place], [place], [place], [place]) Address [address] [place] [address] Care Team Providers Care Chemical Operator Name Role Phone [facility], Provider Not In The System Primary Care Provider Unavailable Reason for Visit * Reason Comments Abdominal Pain Encounter Details Date Type Department Care Team (Late st Contact Info) Description 01/23/2025 2:01 PM EST - 01/23/2025 5:38 PM EST Emergency [facility] Emergency Department [address] [place] [phone] Kj Hernandez MD [address] [place] [address] Abdominal pain (Primary Dx); Gallstone Discharge Disposition: [...] to ER if symptoms worse or different. KING MACHINE SET UP OPERATOR KING MACHINE SET UP OPERATOR * Attachments The following attachments cannot be sent through Care Everywhere. * Cholelithiasis Eblz-at-Tirc (Montenegrin) * Abdominal Pain Adult (Montenegrin) * [place] Diet (Montenegrin) documented in this encounter Medications at Time of Discharge famotidine (PEPCID) 40 MG tablet Take 1 tablet (40 mg total) by mouth daily. 30 tablet 01/23/2025 ondansetron (ZOFRAN-ODT) 4 MG disintegrating tablet Take 1 tablet (4 mg total) by mouth every 4 (four) hours as needed for nausea or vomiting for up to 7 days. 20 tablet 01/23/2025 documented as of this encounter ED Notes * Emilia Archuleta PA-C - 01/23/2025 5:38 PM EST Subjective Chief Complaint: Abdominal Pain History provided by: Patient Abdominal Pain Pain location: Epigastric and RUQ Pain quality: dull Pain radiates to: Back Pain severity: Moderate Timing: Sporadic Progression: Resolved Chronicity: Recurrent Context comment: Patient reports recurrent pain for months.He went to chiropracter and suggested toER possible gallbladder issue. Associated symptoms: vomiting Associated symptoms: no fever Patient History No past medical history on file. No past surgical history on file. No family history on file. Social History Tobacco Use Smoking status: Not on file Smokeless tobacco: Not on file Substance Use Topics Alcohol use: Not on file I reviewed the HPI, ROS and PFSH documentation recorded by others in the medical record and supplemented my note as needed. Review of Systems Review of Systems Constitutional: Negative. Negative for fever. HENT: Negative. Respiratory: Negative. Cardiovascular: Negative. Gastrointestinal: Positive for abdominal pain and vomiting. Neurological: Negative. Psychiatric/Behavioral: Negative. Physical Exam ED Triage Vitals Encounter Vitals Group BP 01/23/25 1400 (!) 155/88 Girls Systolic BP Percentile -- Girls Diastolic BP Percentile -- Boys Systolic BP Percentile -- Boys Diastolic BP Percentile -- Pulse 01/23/25 1400 87 Resp 01/23/25 1400 18 Temp 01/23/25 1400 97.9 ??F (36.6 ??C) Temp src 01/23/25 1400 Tympanic SpO2 01/23/25 1400 98 % Weight 01/23/25 1400 106.6 kg (235 lb) Height 01/23/25 1400 1.854 m (6' 1 ) Head Circumference -- Peak Flow -- Pain Score 01/23/25 1422 Zero Pain Loc -- Pain Education -- Exclude from Growth Chart -- Physical Exam Vitals and nursing note reviewed. Constitutional: Appearance: He is well-developed. HENT: Head: Normocephalic. Cardiovascular: Rate and Rhythm: Normal rate. Pulmonary: Effort: Pulmonary effort is normal. Breath sounds: Normal breath sounds. Abdominal: Palpations: Abdomen is soft. Tenderness: There is no abdominal tenderness. Skin: General: Skin is warm. Neurological: General: No focal deficit present. Mental Status: He is alert. Neurological Exam Mental Status Alert. Ortho Exam ED Course & MDM Medications iopamidoL (ISOVUE-370) 370 mg iodine /mL (76 %) injection 75 mL (75 mLs intravenous Given 01/23/25 1527) Results for orders placed or performed during the hospital encounter of 01/23/25 CBC with Auto Diff Result Value Ref Range WBC 8.8 4.2 - 9.1 K/??L RBC 5.49 4.63 - 6.08 M/??L Hemoglobin 16.5 13.7 - 17.5 GM/DL Hematocrit 47.6 40.1 - 51.0 % MCV 87 79 - 92 fL MCH 30.1 25.7 - 32.2 pg MCHC 34.7 32.3 - 36.5 GM/DL RDW 11.9 11.6 - 14.4 % Platelets 296 140 - 375 K/CU MM MPV 8.8 (L) 9.4 - 12.4 fL % Neutros 64 34 - 68 % % Lymphs 29 22 - 53 % % Monos 5 5 - 12 % % Eos 1.3 1.0 - 7.0 % % Baso 1 0 - 1 % NRBC Absolute <0.01 0 - 0.012 K/ul # Neutros 5.59 (H) 1.78 - 5.38 K/??L # Lymphs 2.54 1.32 - 3.57 K/??L # Monos 0.47 0.30 - 0.82 K/??L # Eos 0.11 0.04 - 0.54 K/??L # Baso 0.06 0.01 - 0.08 K/??L % Imm Grans 0.30 0.01 - 0.43 % # IG 0.03 0.00 - 0.03 K/uL Comprehensive metabolic panel Result Value Ref Range Sodium 140 136 - 145 meq/L Potassium 4.6 3.4 - 5.1 meq/L Chloride 107 98 - 112 meq/L CO2 25 22 - 29 meq/L Calcium 10.2 8.4 - 10.2 mg/dL Glucose 104 (H) 74 - 100 mg/dL BUN 18.0 8.9 - 20.6 mg/dL Creatinine 0.94 0.60 - 1.20 mg/dL BUN/Creatinine 19 8 - 20 eGFR (mL/min/1.73m2) 110 >=60 mL/min/1.73m2 Albumin 4.5 3.5 - 5.0 g/dL Alkaline Phosphatase 96 40 - 150 U/L ALT 50 <55 U/L AST 28 5 - 34 U/L Total Bilirubin 0.4 0.3 - 1.2 mg/dL Protein, Total 7.4 6.4 - 8.3 g/dL Globulin 2.9 2.5 - 4.1 g/dL Anion Gap 13 (H) 4 - 12 A/G Ratio 1.6 0.7 - 1.9 Osmolality Calc 281.6 mOsm/kg Lipase Result Value Ref Range Lipase 14 <=60 U/L Urinalysis, Reflex Microscopic and Culture If Indicated Result Value Ref Range Color, UA Colorless Clarity, UA Clear Clear Specific [place], UA 1.010 1.005 - 1.030 pH, UA 7.5 6.0 - 8.0 Leukocytes, UA Negative Negative Nitrite, UA Negative Negative Protein, UA Negative Negative Glucose, UA Normal Normal Ketones, UA Negative Negative Bilirubin, UA Negative Negative Blood, UA Negative Negative Urobilinogen, UA Normal Normal Specimen Source Urine, Clean Catch Blue Top Extra Tubes Result Value Ref Range HOLD SPECIMEN (SJ - BKR) Hold for add-ons. PST Top Extra Tubes Result Value Ref Range HOLD SPECIMEN (SJ - BKR) Hold for add-ons. Luther Top Extra Tubes Result Value Ref Range HOLD SPECIMEN (SJ - BKR) Hold for add-ons. CT ABDOMEN/PELVIS WITH IV CONTRAST Final Result No acute intra-abdominal process. Cholelithiasis. Images reviewed, interpreted, and dictated by Dr. Angelique Khan. Transcribed by Micki Goldberg PA-C. Procedures Medical Decision Making Differential dx Gallbladder issue/stones/colic/pancreatitis/GERD/IBS Luca Mata is a 34 y.o. male with has no past medical history who is presenting with recurrent upper abdomen pain. ROS is negative except as documented in the HPI. Patient appears well nontoxic heart lungs clear to auscultation abdomen soft nontender. He is having no pain today he is neuro logically intact. Patient had normal white blood cell count CBC within normal limits. Lipase normal. Patient CT abdomen pelvis per radiologist results describe gallstones. Discussed this with patientin detail. Advised follow-up primary care and surgeon for evaluation of gallbladder issues biliary colic. May need surgery for gallbladder removal. Voiced understanding. Discussed case supervising ERphysician and agrees with plan of care. Amount and/or Complexity of Data Reviewed Radiology: ordered. Risk Prescription drug management. Assessment & Plan Clinical Impression Diagnosis Comment Added By Time Added Abdominal pain Emilia Archuleta PA-C 01/23/2025 4:47 PM Gallstone Emilia Archuleta PA-C 01/23/2025 4:47 PM Disposition Discharge [1] - 01/23/2025 5:32 PM Discharge Medication List as of 01/23/2025 5:33 PM START taking these medications Details famotidine (PEPCID) 40 MG tablet Take 1 tablet (40 mg total) by mouth daily., Starting Sun01/23/2025, Normal ondansetron (ZOFRAN-ODT) 4 MG disintegrating tablet Take 1 tablet (4 mg total) by mouth every 4 (four) hours as needed for nausea or vomiting for up to 7 days., Starting Sun01/23/2025, Until Sun01/30/2025 at 2359, Normal Contact information for follow-up Nya Parnell DO Specialty: General Surgery [address] [facility] [facility] [address] [place] [address] Next Steps: Follow up [facility] [address] [place] [address] Next Steps: Follow up Electronically Signed By Emilia Archuleta PA-C 01/30/25 0946 Cosigned by Kj Hernandez MD at 02/03/2025 7:24 AM EST KING MACHINE SET UP OPERATOR KING MACHINE SET UP OPERATOR Associated attestation - Kj Hernandez MD - 02/03/2025 6:24 AM CHUCKING MACHINE SET UP OPERATOR Based on the medical record, the care appears appropriate . * Stella Chirinos RN - 01/23/2025 5:37 PM EST Pt. Verbalized discharge instructions and understanding. Pt. At baseline and ambulatory at time of discharge. Stella Chirinos RN 01/23/25 1738 KING MACHINE SET UP OPERATOR * Sukh Hobbs RN - 01/23/2025 1:59 PM EST Burning belly pain. KING MACHINE SET UP OPERATOR documented in this encounter Plan of Treatment [...] dictated by Dr. Angelique Khan. Transcribed by Mciki Goldberg PA-C. Narrative 01/23/2025 4:14 PM EST [...] EST) Color, UA Colorless 01/23/2025 3:00 PM [facility] Clarity, UA Clear Clear 01/23/2025 3:00 PM [facility] Specific [place], UA 1.010 1.005 - 1.030 01/23/2025 3:00 PM [facility] pH, UA 7.5 6.0 - 8.0 01/23/2025 3:00 PM [facility] Leukocytes, UA Negative Negative 01/23/2025 3:00 PM EST [facility] Nitrite, UA Negative Negative 01/23/2025 3:00 PM EST [facility] Protein, UA Negative Negative 01/23/2025 3:00 PM EST [facility] Glucose, UA Normal Normal 01/23/2025 3:00 PM EST [facility] Ketones, UA Negative Negative 01/23/2025 3:00 PM EST [facility] Bilirubin, UA Negative Negative 01/23/2025 3:00 PM EST [facility] Blood, UA Negative Negative 01/23/2025 3:00 PM [facility] Urobilinogen, UA Normal Normal 01/23/2025 3:00 PM [facility] Specimen Source Urine, Clean Catch 01/23/2025 3:00 PM [facility] Urine URINE SPECIMEN COLLECTION, CLEAN CATCH / Unknown 01/23/2025 2:55 PM EST 01/23/2025 2:55 PM EST Kj Hernandez MD URINE ORDERABLES Final Resu lt Performing Organization Address City/[facility]/ZIP Co de Phone Number [facility] [address] [phone] * Luther Top Extra Tubes (01/23/2025 2:07 PM EST) HOLD SPECIMEN ([facility] BKR) Hold for add-ons. 01/23/2025 4:00 PM EST [facility] Comment:Auto resulted. Blood (Blood, Veinous) Venipuncture / Unknown 01/23/2025 2:07 PM EST 01/23/2025 2:16 PM EST Kj Hernandez MD LAB BLOOD ORDERABLES Final Result Performing Organization Address City/[facility]/ZIP Co de Phone Number [facility] [address] [phone] * PST Top Extra Tubes (01/23/2025 2:07 PM EST) HOLD SPECIMEN (SJ - BKR) Hold for add-ons. 01/23/2025 4:00 PM EST [facility] Comment:Auto resulted. Blood (Blood, Veinous) Venipuncture / Unknown 01/23/2025 2:07 PM EST 01/23/2025 2:16 PM EST Kj Hernandez MD LAB BLOOD ORDERABLES Final Result Performing Organization Address [facility] Co de Phone Number [facility] [address] [phone] * Blue Top Extra Tubes (01/23/2025 2:07 PM EST) HOLD SPECIMEN (SJ - BKR) Hold for add-ons. 01/23/2025 4:00 PM EST [facility] Comment:Auto resulted. Blood (Blood, Veinous) Venipuncture / Unknown 01/23/2025 2:07 PM EST 01/23/2025 2:16 PM EST Kj Hernandez MD LAB BLOOD ORDERABLES Final Result Performing Organization Address [facility] Co wv Phone Number [facility] [address] [phone] * Lipase (01/23/2025 2:07 PM EST) Lipase 14 <=60 U/L 01/23/2025 2:40 PM EST [facility] Blood Venipuncture / Unknown 01/23/2025 2:07 PM EST 01/23/2025 2:16 PM EST Kj Hernandez MD LAB BLOOD ORDERABLES Final Result Performing Organization Address [facility] Co wv Phone Number [facility] [address] [phone] * (ABNORMAL) Comprehensive metabolic panel (01/23/2025 2:07 PM EST) Sodium 140 136 - 145 meq/L 01/23/2025 2:40 PM [facility] Potassium 4.6 3.4 - 5.1 meq/L 01/23/2025 2:40 PM [facility] Chloride 107 98 - 112 meq/L 01/23/2025 2:40 PM [facility] CO2 25 22 - 29 meq/L 01/23/2025 2:40 PM [facility] Calcium 10.2 8.4 - 10.2 mg/dL 01/23/2025 2:40 PM [facility] Glucose 104(H) 74 - 100 mg/dL 01/23/2025 2:40 PM [facility] BUN 18.0 8.9 - 20.6 mg/dL 01/23/2025 2:40 PM [facility] Creatinine 0.94 0.60 - 1.20 mg/dL 01/23/2025 2:40 PM [facility] BUN/Creatinine 19 8 - 20 01/23/2025 2:40 PM [facility] eGFR (mL/min/1.73m2) 110 >=60 mL/min/1.7 3m2 01/23/2025 2:40 PM [facility] Comment:ESTIMATED GFR IS NOT ACCURATE CREATININE CLEARANCE IN PREDICTING GLOMERULAR FILTRATION RATE. ESTIMATED GFR IS NOT APPLICABLE FOR DIALYSIS PATIENTS. Albumin 4.5 3.5 - 5.0 g/dL 01/23/2025 2:40 PM [facility] Alkaline Phosphatase 96 40 - 150 U/L 01/23/2025 2:40 PM [facility] ALT 50 <55 U/L 01/23/2025 2:40 PM [facility] AST 28 5 - 34 U/L 01/23/2025 2:40 PM [facility] Total Bilirubin 0.4 0.3 - 1.2 mg/dL 01/23/2025 2:40 PM [facility] Protein, Total 7.4 6.4 - 8.3 g/dL 01/23/2025 2:40 PM [facility] Globulin 2.9 2.5 - 4.1 g/dL 01/23/2025 2:40 PM [facility] Anion Gap 13(H) 4 - 12 01/23/2025 2:40 PM [facility] A/G Ratio 1.6 0.7 - 1.9 01/23/2025 2:40 PM [facility] Osmolality Calc 281.6 mOsm/kg 2:40 PM [facility] Blood Venipuncture / Unknown 01/23/2025 2:07 PM EST 01/23/2025 2:16 PM EST us Kj Hernandez MD LAB BLOOD ORDERABLES Final Result [facility] [address] [phone] * (ABNORMAL) CBC with Auto Diff (01/23/2025 2:07 PM EST) WBC 8.8 4.2 - 9.1 K/ L 01/23/2025 2:20 PM [facility] RBC 5.49 4.63 - 6.08 M/ L 01/23/2025 2:20 PM [facility] Hemoglobin 16.5 13.7 - 17.5 GM/DL 01/23/2025 2:20 PM [facility] Hematocrit 47.6 40.1 - 51.0 % 01/23/2025 2:20 PM [facility] MCV 87 79 - 92 fL 01/23/2025 2:20 PM [facility] MCH 30.1 25.7 - 32.2 pg 01/23/2025 2:20 PM [facility] MCHC 34.7 32.3 - 36.5 GM/DL 01/23/2025 2:20 PM [facility] RDW 11.9 11.6 - 14.4 % 01/23/2025 2:20 PM [facility] Platelets 296 140 - 375 K/CU MM 01/23/2025 2:20 PM [facility] MPV 8.8(L) 9.4 - 12.4 fL 01/23/2025 2:20 PM [facility] % Neutros 64 34 - 68 % 01/23/2025 2:20 PM [facility] % Lymphs 29 22 - 53 % 01/23/2025 2:20 PM [facility] % Monos 5 5 - 12 % 01/23/2025 2:20 PM [facility] % Eos 1.3 1.0 - 7.0 % 01/23/2025 2:20 PM [facility] % Baso 1 0 - 1 % 01/23/2025 2:20 PM [facility] NRBC Absolute <0.01 0 - 0.012 K/ul 01/23/2025 2:20 PM [facility] # Neutros 5.59(H) 1.78 - 5.38 K/ L 01/23/2025 2:20 PM [facility] # Lymphs 2.54 1.32 - 3.57 K/ L 01/23/2025 2:20 PM [facility] # Monos 0.47 0.30 - 0.82 K/ L 01/23/2025 2:20 PM [facility] # Eos 0.11 0.04 - 0.54 K/ L 01/23/2025 2:20 PM [facility] # Baso 0.06 0.01 - 0.08 K/ L 01/23/2025 2:20 PM [facility] % Imm Grans 0.30 0.01 - 0.43 % 01/23/2025 2:20 PM [facility] # IG 0.03 0.00 - 0.03 K/uL 01/23/2025 2:20 PM [facility] Blood Venipuncture / Unknown 01/23/2025 2:07 PM EST 01/23/2025 2:16 PM EST [facility] - 01/23/2025 2:20 PM EST When [...] Hernandez MD LAB BLOOD ORDERABLES Final Result [facility] [address] [place] [address], [facility] [phone] documented in this encounter Visit Diagnoses Diagnosis [...] Desai) documented in this encounter Care Teams Chemical Operator Relationship Specialty Start Date End Date [facility], Provider Not In The System, [address] [place] [phone] PCP - General 01/23/25 documented as of this encounter
--- OUTSIDE RECORDS SUMMARY | 2025-02-09 08:01 | XMS_ITS | Clinical Summary ---
Author Organization [employer] ([place], [place], [place], [place], [place]) Address [address] [place] [address] Care Team Providers Care Installation Service Representative Name Role Phone [facility], Provider Not In The System Primary Care [...] 7 days. 20 tablet 5 01/31/20 25 Encounters Date Type Department Care Team Description 01/23/2025 2:01 PM EST - 01/23/2025 5:38 PM EST Emergency [facility] Emergency Department [address] [place] [address] Kj Hernandez MD Abdominal pain (Primary Dx); Gallstone Discharge Disposition: [...] EST) Color, UA Colorless 01/23/2025 3:00 PM [facility] Clarity, UA Clear Clear 01/23/2025 3:00 PM [facility] Specific [place], UA 1.010 1.005 - 1.030 01/23/2025 3:00 PM [facility] pH, UA 7.5 6.0 - 8.0 01/23/2025 3:00 PM [facility] Leukocytes, UA Negative Negative 01/23/2025 3:00 PM [facility] Nitrite, UA Negative Negative 01/23/2025 3:00 PM [facility] Protein, UA Negative Negative 01/23/2025 3:00 PM [facility] Glucose, UA Normal Normal 01/23/2025 3:00 PM [facility] Ketones, UA Negative Negative 01/23/2025 3:00 PM [facility] Bilirubin, UA Negative Negative 01/23/2025 3:00 PM [facility] Blood, UA Negative Negative 01/23/2025 3:00 PM [facility] Urobilinogen, UA Normal Normal 01/23/2025 3:00 PM [facility] Specimen Source Urine, Clean Catch 01/23/2025 3:[address] [facility] Urine URINE SPECIMEN COLLECTION, CLEAN CATCH / Unknown 01/23/2025 2:55 PM EST 01/23/2025 2:55 PM EST Kj Hernandez MD URINE ORDERABLES Final Resu lt Performing Organization Address [facility]/ZIP Co de Phone Number [facility] [address] [phone] * PST Top Extra Tubes (01/23/2025 2:07 PM EST) HOLD SPECIMEN (SJ - BKR) Hold for add-ons. 01/23/2025 4:[address] [facility] Comment:Auto resulted. Blood (Blood, Veinous) Venipuncture / Unknown 01/23/2025 2:07 PM EST 01/23/2025 2:16 PM EST Kj Hernandez MD LAB BLOOD ORDERABLES Final Result Performing Organization Address [facility] Co de Phone Number [facility] [address] [phone] * Luther Top Extra Tubes (01/23/2025 2:07 PM EST) HOLD SPECIMEN (SJ - BKR) Hold for add-ons. 01/23/2025 4:[address] [facility] Comment:Auto resulted. Blood (Blood, Veinous) Venipuncture / Unknown 01/23/2025 2:07 PM EST 01/23/2025 2:16 PM EST Kj Hernandez MD LAB BLOOD ORDERABLES Final Result Performing Organization Address City/[facility]/ZIP Co de Phone Number [facility] [address] [phone] * Blue Top Extra Tubes (01/23/2025 2:07 PM EST) HOLD SPECIMEN (SJ - BKR) Hold for add-ons. 01/23/2025 4:[address] [facility] Comment:Auto resulted. Blood (Blood, Veinous) Venipuncture / Unknown 01/23/2025 2:07 PM EST 01/23/2025 2:16 PM EST us Kj Hernandez MD LAB BLOOD ORDERABLES Final Result [facility] [address] [phone] * (ABNORMAL) CBC with Auto Diff (01/23/2025 2:07 PM EST) WBC 8.8 4.2 - 9.1 K/ L 01/23/2025 2:20 PM [facility] RBC 5.49 4.63 - 6.08 M/ L 01/23/2025 2:20 PM [facility] Hemoglobin 16.5 13.7 - 17.5 GM/DL 01/23/2025 2:20 PM [facility] Hematocrit 47.6 40.1 - 51.0 % 01/23/2025 2:20 PM [facility] MCV 87 79 - 92 fL 01/23/2025 2:20 PM [facility] MCH 30.1 25.7 - 32.2 pg 01/23/2025 2:20 PM [facility] MCHC 34.7 32.3 - 36.5 GM/DL 01/23/2025 2:20 PM [facility] RDW 11.9 11.6 - 14.4 % 01/23/2025 2:20 PM [facility] Platelets 296 140 - 375 K/CU MM 01/23/2025 2:20 PM [facility] MPV 8.8(L) 9.4 - 12.4 fL 01/23/2025 2:20 PM [facility] % Neutros 64 34 - 68 % 01/23/2025 2:20 PM [facility] % Lymphs 29 22 - 53 % 01/23/2025 2:[address] [facility] % Monos 5 5 - 12 % 01/23/2025 2:20 PM [facility] % Eos 1.3 1.0 - 7.0 % 01/23/2025 2:20 PM [facility] % Baso 1 0 - 1 % 01/23/2025 2:20 PM [facility] NRBC Absolute <0.01 0 - 0.012 K/ul 01/23/2025 2:20 PM [facility] # Neutros 5.59(H) 1.78 - 5.38 K/ L 01/23/2025 2:20 PM [facility] # Lymphs 2.54 1.32 - 3.57 K/ L 01/23/2025 2:20 PM [facility] # Monos 0.47 0.30 - 0.82 K/ L 01/23/2025 2:20 PM [facility] # Eos 0.11 0.04 - 0.54 K/ L 01/23/2025 2:20 PM [facility] # Baso 0.06 0.01 - 0.08 K/ L 01/23/2025 2:20 PM [facility] % Imm Grans 0.30 0.01 - 0.43 % 01/23/2025 2:20 PM [facility] # IG 0.03 0.00 - 0.03 K/uL 01/23/2025 2:20 PM [facility] Blood Venipuncture / Unknown 01/23/2025 2:07 PM EST 01/23/2025 2:[address] [facility] - 01/23/2025 2:20 PM EST [...] MD LAB BLOOD ORDERABLES Final Result [facility] [address] [phone] * Lipase (01/23/2025 2:07 PM EST) Lipase 14 <=60 U/L 01/23/2025 2:[address] [facility] Blood Venipuncture / Unknown 01/23/2025 2:07 PM EST 01/23/2025 2:16 PM EST Kj Hernandez MD LAB BLOOD ORDERABLES Final Result [facility] [address] [phone] * (ABNORMAL) Comprehensive metabolic panel (01/23/2025 2:07 PM EST) Sodium 140 136 - 145 meq/L 01/23/2025 2:40 PM [facility] Potassium 4.6 3.4 - 5.1 meq/L 01/23/2025 2:40 PM [facility] Chloride 107 98 - 112 meq/L 01/23/2025 2:40 PM [facility] CO2 25 22 - 29 meq/L 01/23/2025 2:40 PM [facility] Calcium 10.2 8.4 - 10.2 mg/dL 01/23/2025 2:40 PM [facility] Glucose 104(H) 74 - 100 mg/dL 01/23/2025 2:40 PM [facility] BUN 18.0 8.9 - 20.6 mg/dL 01/23/2025 2:40 PM [facility] Creatinine 0.94 0.60 - 1.20 mg/dL 01/23/2025 2:40 PM [facility] BUN/Creatinine 19 8 - 20 01/23/2025 2:40 PM [facility] eGFR (mL/min/1.73m2) 110 >=60 mL/min/1.7 3m2 01/23/2025 2:40 PM [facility] Comment:ESTIMATED GFR IS NOT ACCURATE CREATININE CLEARANCE IN PREDICTING GLOMERULAR FILTRATION RATE. ESTIMATED GFR IS NOT APPLICABLE FOR DIALYSIS PATIENTS. Albumin 4.5 3.5 - 5.0 g/dL 01/23/2025 2:40 PM [facility] Alkaline Phosphatase 96 40 - 150 U/L 01/23/2025 2:40 PM [facility] ALT 50 <55 U/L 01/23/2025 2:40 PM [facility] AST 28 5 - 34 U/L 01/23/2025 2:40 PM [facility] Total Bilirubin 0.4 0.3 - 1.2 mg/dL 01/23/2025 2:40 PM [facility] Protein, Total 7.4 6.4 - 8.3 g/dL 01/23/2025 2:40 PM [facility] Globulin 2.9 2.5 - 4.1 g/dL 01/23/2025 2:40 PM [facility] Anion Gap 13(H) 4 - 12 01/23/2025 2:40 PM [facility] A/G Ratio 1.6 0.7 - 1.9 01/23/2025 2:40 PM [facility] Osmolality Calc 281.6 mOsm/kg 2:40 PM [facility] Blood Venipuncture / Unknown 01/23/2025 2:07 PM EST 01/23/2025 2:16 PM EST us Kj Hernandez MD LAB BLOOD ORDERABLES Final Result [facility] [address] [place] [id number] [phone] from Last 3 Months Insurance BLUE CROSS/BLUE SHIELD Care Teams Installation Service Representative Relationship Specialty Start Date End Date [facility], Provider Not In The System, [place] [address] PCP - General 01/23/25
--- OUTSIDE RECORDS SUMMARY | 2025-02-09 08:01 | XMS_ITS | Referral Summary ---
Author Organization [employer] ([place], [place], [place], [place], [place]) Address [address] [place] [address] Care Team Providers Care Acid Plant Helper Name Role Phone [facility], Provider Not In The System Primary Care Provider Unavailable Encounters Date Type Department Care Team Description 01/23/2025 Travel 01/23/2025 2:01 PM EST - 01/23/2025 5:38 PM EST Emergency [facility] Emergency Department [address] [place] [address] Kj Hernandez MD Abdominal pain [...] 7 days. 20 tablet 5 01/31/20 25 Social History Tobacco Use Types Packs/Day Years [...] EST) Color, UA Colorless 01/23/2025 3:00 PM [facility] Clarity, UA Clear Clear 01/23/2025 3:00 PM [facility] Specific [place], UA 1.010 1.005 - 1.030 01/23/2025 3:00 PM [facility] pH, UA 7.5 6.0 - 8.0 01/23/2025 3:00 PM [facility] Leukocytes, UA Negative Negative 01/23/2025 3:00 PM [facility] Nitrite, UA Negative Negative 01/23/2025 3:00 PM [facility] Protein, UA Negative Negative 01/23/2025 3:00 PM [facility] Glucose, UA Normal Normal 01/23/2025 3:00 PM [facility] Ketones, UA Negative Negative 01/23/2025 3:00 PM [facility] Bilirubin, UA Negative Negative 01/23/2025 3:00 PM [facility] Blood, UA Negative Negative 01/23/2025 3:00 PM [facility] Urobilinogen, UA Normal Normal 01/23/2025 3:00 PM [facility] Specimen Source Urine, Clean Catch 01/23/2025 3:00 PM [facility] Urine URINE SPECIMEN COLLECTION, CLEAN CATCH / Unknown 01/23/2025 2:55 PM EST 01/23/2025 2:55 PM EST Kj Hernandez MD URINE ORDERABLES Final Resu lt [facility] [address] [phone] * PST Top Extra Tubes (01/23/2025 2:07 PM EST) HOLD SPECIMEN (SJ - BKR) Hold for add-ons. 01/23/2025 4:00 PM EST [facility] Comment:Auto resulted. Blood (Blood, Veinous) Venipuncture / Unknown 01/23/2025 2:07 PM EST 01/23/2025 2:16 PM EST Kj Hernandez MD LAB BLOOD ORDERABLES Final Result [facility] [address] [phone] * Luther Top Extra Tubes (01/23/2025 2:07 PM EST) HOLD SPECIMEN ( - BKR) Hold for add-ons. 01/23/2025 4:00 PM EST [facility] Comment:Auto resulted. Blood (Blood, Veinous) Venipuncture / Unknown 01/23/2025 2:07 PM EST 01/23/2025 2:16 PM EST Kj Hernandez MD LAB BLOOD ORDERABLES Final Result Performing Organization Address [facility] Co de Phone Number [facility] [address] [phone] * Blue Top Extra Tubes (01/23/2025 2:07 PM EST) HOLD SPECIMEN (SJ - BKR) Hold for add-ons. 01/23/2025 4:00 PM EST [facility] Comment:Auto resulted. Blood (Blood, Veinous) Venipuncture / Unknown 01/23/2025 2:07 PM EST 01/23/2025 2:16 PM EST Kj Hernandez MD LAB BLOOD ORDERABLES Final Result Performing Organization Address City/[facility]/ZIP Co de Phone Number [facility] [address] [phone] * (ABNORMAL) CBC with Auto Diff (01/23/2025 2:07 PM EST) WBC 8.8 4.2 - 9.1 K/ L 01/23/2025 2:20 PM [facility] RBC 5.49 4.63 - 6.08 M/ L 01/23/2025 2:20 PM [facility] Hemoglobin 16.5 13.7 - 17.5 GM/DL 01/23/2025 2:20 PM [facility] Hematocrit 47.6 40.1 - 51.0 % 01/23/2025 2:20 PM [facility] MCV 87 79 - 92 fL 01/23/2025 2:20 PM [facility] MCH 30.1 25.7 - 32.2 pg 01/23/2025 2:20 PM [facility] MCHC 34.7 32.3 - 36.5 GM/DL 01/23/2025 2:20 PM [facility] RDW 11.9 11.6 - 14.4 % 01/23/2025 2:20 PM [facility] Platelets 296 140 - 375 K/CU MM 01/23/2025 2:20 PM [facility] MPV 8.8(L) 9.4 - 12.4 fL 01/23/2025 2:20 PM [facility] % Neutros 64 34 - 68 % 01/23/2025 2:20 PM [facility] % Lymphs 29 22 - 53 % 01/23/2025 2:20 PM [facility] % Monos 5 5 - 12 % 01/23/2025 2:20 PM [facility] % Eos 1.3 1.0 - 7.0 % 01/23/2025 2:20 PM [facility] % Baso 1 0 - 1 % 01/23/2025 2:20 PM [facility] NRBC Absolute <0.01 0 - 0.012 K/ul 01/23/2025 2:20 PM [facility] # Neutros 5.59(H) 1.78 - 5.38 K/ L 01/23/2025 2:20 PM EST [facility] # Lymphs 2.54 1.32 - 3.57 K/ L 01/23/2025 2:20 PM EST [facility] # Monos 0.47 0.30 - 0.82 K/ L 01/23/2025 2:20 PM EST [facility] # Eos 0.11 0.04 - 0.54 K/ L 01/23/2025 2:20 PM EST [facility] # Baso 0.06 0.01 - 0.08 K/ L 01/23/2025 2:20 PM EST [facility] % Imm Grans 0.30 0.01 - 0.43 % 01/23/2025 2:20 PM EST [facility] # IG 0.03 0.00 - 0.03 K/uL 01/23/2025 2:20 PM EST [facility] Blood Venipuncture / Unknown 01/23/2025 2:07 PM EST 01/23/2025 2:16 PM EST Narrative [facility] - 01/23/2025 2:20 PM EST When [...] Blast? Flag noted Atypical Lymph flag noted Kj Hernandez MD LAB BLOOD ORDERABLES Final Result Performing Organization Address [facility] Co de Phone Number [facility] [address] [phone] * Lipase (01/23/2025 2:07 PM EST) Lipase 14 <=60 U/L 01/23/2025 2:40 PM EST [facility] Blood Venipuncture / Unknown 01/23/2025 2:07 PM EST 01/23/2025 2:16 PM EST Kj Hernandez MD LAB BLOOD ORDERABLES Final Result [facility] 1 [place] [address], [place] [phone] * (ABNORMAL) Comprehensive metabolic panel (01/23/2025 2:07 PM EST) Sodium 140 136 - 145 meq/L 01/23/2025 2:40 PM [facility] Potassium 4.6 3.4 - 5.1 meq/L 01/23/2025 2:40 PM [facility] Chloride 107 98 - 112 meq/L 01/23/2025 2:40 PM [facility] CO2 25 22 - 29 meq/L 01/23/2025 2:40 PM [facility] Calcium 10.2 8.4 - 10.2 mg/dL 01/23/2025 2:40 PM [facility] Glucose 104(H) 74 - 100 mg/dL 01/23/2025 2:40 PM [facility] BUN 18.0 8.9 - 20.6 mg/dL 01/23/2025 2:40 PM [facility] Creatinine 0.94 0.60 - 1.20 mg/dL 01/23/2025 2:40 PM [facility] BUN/Creatinine 19 8 - 20 01/23/2025 2:40 PM [facility] eGFR (mL/min/1.73m2) 110 >=60 mL/min/1.7 3m2 01/23/2025 2:40 PM [facility] Comment:ESTIMATED GFR IS NOT ACCURATE CREATININE CLEARANCE IN PREDICTING GLOMERULAR FILTRATION RATE. ESTIMATED GFR IS NOT APPLICABLE FOR DIALYSIS PATIENTS. Albumin 4.5 3.5 - 5.0 g/dL 01/23/2025 2:40 PM [facility] Alkaline Phosphatase 96 40 - 150 U/L 01/23/2025 2:40 PM [facility] ALT 50 <55 U/L 01/23/2025 2:40 PM [facility] AST 28 5 - 34 U/L 01/23/2025 2:40 PM [facility] Total Bilirubin 0.4 0.3 - 1.2 mg/dL 01/23/2025 2:40 PM EST [facility] Protein, Total 7.4 6.4 - 8.3 g/dL 01/23/2025 2:40 PM EST [facility] Globulin 2.9 2.5 - 4.1 g/dL 01/23/2025 2:40 PM EST [facility] Anion Gap 13(H) 4 - 12 01/23/2025 2:40 PM EST [facility] A/G Ratio 1.6 0.7 - 1.9 01/23/2025 2:40 PM EST [facility] Osmolality Calc 281.6 mOsm/kg 2:40 PM EST [facility] Blood Venipuncture / Unknown 01/23/2025 2:07 PM EST 01/23/2025 2:16 PM EST us Kj Hernandez MD LAB BLOOD ORDERABLES Final Result [facility] [address] [phone] from Last 3 Months Insurance [id number] [place] [address] BLUE CROSS/BLUE SHIELD Care Teams Acid Plant Helper Relationship Specialty Start Date End Date [facility], Provider Not In The System, [place] [address] PCP - General 01/23/25
--- OUTSIDE RECORDS SUMMARY | 2025-02-09 08:01 | XMS_ITS | Encounter Summary ---
Author Organization [employer] ([place], [place], [place], [place], [place]) Address [address] [place] [address] Care Team Providers Care Energy Audit Advisor Name Role Phone [facility], Provider Not In The System [...] on filedocumented in this encounter Care Teams Energy Audit Advisor Relationship Specialty Start Date End Date Inderjit Provider Not In The System, [place] [address] PCP - General 01/23/25 documented as of this encounter
--- OUTSIDE RECORDS SUMMARY | 2025-02-09 08:01 | XMS_ITS | Clinical Summary ---
Author Organization Healthcare Address [address] [place] [address] Care Team Providers Care Weigher And Crusher Name Role Phone Unavailable Primary Care Provider [...] Vaccines (1 - 3-dose SCDM series) 08/03/2018 [id number] Vaccine (1 - 2024- season) 2024 UKY-Influenza [...]
--- OUTSIDE RECORDS SUMMARY | 2025-02-09 08:01 | XMS_ITS | Clinical Summary ---
Author Organization [facility] Address [address] [place] [id number] Phone [email or web address] Care Team Providers Care Health Lead Name Role Phone Provider, No Primary Care [...] this topic Insurance [place] 5 [facility] [id number] [place] [address] Care Teams Health Lead Relationship Specialty Start Date End Date Provider, [place] [address] PCP - General Rough Rice Grader 07/05/22
--- NOTE | 2025-02-09 08:30 | US_ITS ---
PROCEDURE INFORMATION: Exam: US Abdomen, Limited; Right Upper Quadrant Exam date and time: 02/09/2025 8:40 AM Age: 34 years old Clinical indication: Abdominal pain; Additional info: Right upper quad pain // PT is having surgery tomorrow TECHNIQUE: Imaging protocol: Real time ultrasound of the abdomen with image documentation. Limited exam focused on the right upper quadrant. COMPARISON: CT ABDOMEN PELVIS W CON 01/25/2025 4:21 AM FINDINGS: Liver: Hyperdense lesion measuring 1.7 cm seen in the right lobe of the liver. Mild increased echogenicity of the liver likely represents fatty infiltration. Gallbladder: A calcified gallstone is seen in the gallbladder. The gallbladder wall is normal measuring 2.7 mm. A fold is noted in the gallbladder wall. Biliary ducts: The CBD is normal measuring 4.8 mm. Pancreas: Visualized pancreas is unremarkable. Right kidney: The right kidney is normal enlarging 12 x 6 x 6 cm. IMPRESSION: Hypodense lesion in the right lobe of the liver may represent the previously noted hemangioma on the CT dated 01/25/2025. However definitive evaluation with triple phase protocol is recommended. Cholelithiasis without evidence of cholecystitis.
== END 2025-02-09 23:59 | disposition home or self-care (01) ==
LOC: RAD 07:59
PROVIDERS: PCP Family Medicine; Visit Provider Surgery
DX: K80.20 Calculus of gallbladder without cholecystitis without obstruction (principal); K76.89 Other specified diseases of liver
CPT/HCPCS: 76705

== ENCOUNTER 2025-02-10 09:49 | Day surgery (SDC) | payer BC, SELFPAY ==
[2025-02-06 14:06] VITALS: BMI 30.8
[2025-02-10] VITALS (11 sets, daily range): BP systolic 118–159; BP diastolic 74–93; PULSE 50–82; RESP 16–18; TEMP 36.1–43; O2SAT 94–100
[2025-02-10] MEDS: LACTATED RINGERS 1000ML 1,000 ML 25 ML IV (10:27)
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
[2025-02-10] MEDS: LIDOCAINE 1% 20ML MDV 20 ML (11:11)
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
--- NOTE | 2025-02-10 12:20 | EXP.ANES.I ---
[facility] [place] Anesthesia Record Part I Anesthesia Record I Intake, IV Amount: 800 Hydration: Adequate Estimated blood loss (mL): 0 Urine output (mL): 0 Blood Products used (#): none Blood Pressure: 138/91 SaO2: 94 Pulse Rate: 76 Airway Patency: Patent Respiratory Rate: 16 Temperature: 97.0 F Patient is:: Oral/Nasal airway, Stable and Somnolent Stable to PACU at:: 12:16
[2025-02-10] MEDS: ONDANSETRON 4MG/2ML VIAL 4 MG IV (12:46)
[2025-02-10] MEDS: HYDROMORPHONE 2MG/ML SYRINGE 0.5 MG IV (12:56)
--- NOTE | 2025-02-10 15:22 | P.PNANES_ITS ---
[facility] Anesthesia Record Part II Anesthesia Record Part II Discharge Time: 12:46 Destination: Surgical Day Care (OP Surgery) PACU nurse assessment reviewed?: Yes Patient Condition:: Good Anesthesia Complications:: None Swallowing reflex intact?: Yes Airway Patency: Patent Cyanosis?: No Blood Pressure: 118/91 SaO2: 100 Respiratory Rate: 18 Pulse Rate: 73 Temperature: 97.3 F Mental Status: Alert & Oriented Pain level:: 7 Nausea and/or vomitting:: None Intake, IV Amount: 0 Hydration: Adequate
== END 2025-02-10 13:20 | disposition home or self-care (01) ==
PROVIDERS: PCP Family Medicine; Visit Provider Surgery
PROC: 0FT44ZZ Resection of Gallbladder, Percutaneous Endoscopic Approach (ICD-10-PCS; CPT 47562; principal; 2025-02-10 11:30)
DX: K80.10 Calculus of gallbladder with chronic cholecystitis without obstruction (principal); F17.290 Nicotine dependence, other tobacco product, uncomplicated
CPT/HCPCS: 47562; 96374; C1769; J0690; J1100; J1171; J2003; J2250; J2405; J2704; J2795; J3010; J7120